=== PATIENT | female | born 1975 | race Caucasian/White ===

== ENCOUNTER → 2018-05-13 | Outpatient (CLI) | payer SELFPAY ==
[~2018-05-13] MED LIST: APRI1 EACH PO; DI; EPIN.3I IM; ESCI5 PO; Flonase 0.05% N16 GM; KARIVA PO; OLAN2.5 PO; ORACONB; Omeprazole20 M1; THIA100 PO
== END | disposition home or self-care (01) ==
LOC: LAB 11:42 → LAB SHORT 11:42
PROVIDERS: Obstetrics & Gynecology
DX: Z01.419 Encounter for gynecological examination (general) (routine) without abnormal findings (principal)
CPT/HCPCS: 87624; G0123

== ENCOUNTER 2020-01-27 07:14 | Day surgery (SDC) | payer OTHER | END 2020-01-27 22:39 | disposition home or self-care (01) | LOC: MOI US 07:14 | DX: C50.911 Malignant neoplasm of unspecified site of right female breast (principal); C77.3 Secondary and unspecified malignant neoplasm of axilla and upper limb lymph nodes; Z17.1 Estrogen receptor negative status [ER-] | CPT/HCPCS: 19083; 38505; 76942; 77065; 88305; 88360 ==

== ENCOUNTER 2020-02-09 07:57 | Day surgery (SDC) | payer OTHER ==
[~2020-02-09] VITALS: Ht 162.6 cm; Wt 56.8 kg
== END 2020-02-09 12:26 | disposition home or self-care (01) ==
LOC: ORSCMMR 07:57 → ORD 08:30 → ORSCMMR 09:45
PROVIDERS: Surgery
PROC: 05HN33Z Insertion of Infusion Device into Left Internal Jugular Vein, Percutaneous Approach (ICD-10-PCS; principal; 2020-02-09 09:45)
PROC: B5141ZA Fluoroscopy of Left Jugular Veins using Low Osmolar Contrast, Guidance (ICD-10-PCS; principal; 2020-02-09 09:45)
DX: C50.911 Malignant neoplasm of unspecified site of right female breast (principal); F17.210 Nicotine dependence, cigarettes, uncomplicated; K21.9 Gastro-esophageal reflux disease without esophagitis; Z79.899 Other long term (current) drug therapy
CPT/HCPCS: 77001; A9270-GY; C1788; J0690; J1100; J1642; J2250; J2405; J2704; J3010; J7120

== ENCOUNTER → 2020-03-20 | Outpatient (CLI) | payer OTHER ==
[2020-03-20 15:13] LABS: BASOPHILS ABSOLUTE AUTO 0.13 K/mm3 (0.00-0.23); BASOPHILS PERCENT AUTO 2 % (0-2); EOSINOPHILS ABSOLUTE AUTO 0.07 K/mm3 (0.00-0.68); EOSINOPHILS PERCENT AUTO 1 % (0-6); Hematocrit 32.5 % (33.0-51.0); Hemoglobin 10.5 g/dL (11.5-16.0); IMMATURE GRAN ABSOLUTE AUTO 0.16 K/mm3 (0.00-0.10); IMMATURE GRAN PERCENT AUTO 2 % (0-1); LYMPHOCYTES ABSOLUTE AUTO 1.83 K/mm3 (0.84-5.20); LYMPHOCYTES PERCENT AUTO 24 % (21-46); MONOCYTES ABSOLUTE AUTO 1.45 K/mm3 (0.16-1.47); MONOCYTES PERCENT AUTO 19 % (4-13); Mean Corpuscular HGB 29.8 pg (26.0-34.0); Mean Corpuscular HGB Conc 32.3 g/dL (31.5-36.5); Mean Corpuscular Volume 92 fL (80-100); Mean Platelet Volume 9.8 fL (9.1-12.4); NEUTROPHILS PERCENT AUTO 53 % (41-73); Platelet Count 356 K/mm3 (150-400); RDW Coefficient Variation 13.6 % (11.7-14.2); RDW Standard Deviation 44.7 fL (35.1-46.3); Red Blood Cell Count 3.52 M/mm3 (3.80-5.20); White Blood Cell Count 7.74 K/mm3 (4.00-11.30)
[2020-03-20 15:29] LABS: Alanine Aminotransfer (ALT/SGP 45 U/L (12-78); Albumin, Blood 3.6 g/dL (3.4-5.0); Albumin/Globulin Ratio 1.2 (0.8-1.8); Alk Phos 89 U/L (50-136); Anion Gap 7 mmol/L (6-16); Aspartate Aminotrans (AST/SGOT 32 U/L (12-37); Bilirubin, Total 0.2 mg/dL (0.1-1.0); Blood Urea Nitrogen 13 mg/dL (8-24); Bun/Creatinine Ratio 16.8 (12.0-20.0); CO2, Blood 25 mmol/L (21-32); Calcium, Blood 8.3 mg/dL (8.5-10.1); Chloride, Blood 110 mmol/L (98-108); Creatinine, Blood 0.77 mg/dL (0.40-1.00); Globulin, Blood 3.1 g/dL (2.2-4.0); Glomerular Filtration Rate >60 (60-); Glucose, Blood 90 mg/dL (70-99); Potassium, Blood 3.9 mmol/L (3.5-5.5); Sodium, Blood 142 mmol/L (136-145); Total Protein, Blood 6.7 g/dL (6.4-8.2)
== END | disposition home or self-care (01) ==
LOC: LAB 14:03 → LAB SHORT 14:03
PROVIDERS: Internal Medicine Hematology & Oncology
DX: C50.919 Malignant neoplasm of unspecified site of unspecified female breast (principal)
CPT/HCPCS: 80053; 85025

== ENCOUNTER 2020-07-27 09:07 | Day surgery (SDC) | payer OTHER ==
[2020-07-31] MEDS ORDERED: ONDA4 PO (08:38)
[2020-07-31] MEDS ORDERED: DEXA6 PO (08:38)
[2020-07-31] MEDS ORDERED: OMEP20ER PO (08:39)
== END 2020-07-27 12:00 | disposition home or self-care (01) ==
LOC: MOI US 09:07
DX: C50.919 Malignant neoplasm of unspecified site of unspecified female breast (principal); C77.3 Secondary and unspecified malignant neoplasm of axilla and upper limb lymph nodes
CPT/HCPCS: 19285

== ENCOUNTER 2020-07-31 08:44 | Day surgery (SDC) | payer OTHER ==
[~2020-07-31 08:44] MED LIST changes: +DEXA6 PO; +OMEP20ER PO; +ONDA4 PO
== END 2020-07-31 22:37 | disposition home or self-care (01) ==
LOC: MOI MAM 08:44
DX: C50.411 Malignant neoplasm of upper-outer quadrant of right female breast (principal)
CPT/HCPCS: 77065

== ENCOUNTER 2020-09-23 15:54 | Emergency (ER) | payer OTHER ==
[~2020-09-23] VITALS: Ht 162.6 cm; Wt 59.0 kg
[2020-09-23 16:41] LABS: BASOPHILS ABSOLUTE AUTO 0.09 K/mm3 (0.00-0.23); BASOPHILS PERCENT AUTO 1 % (0-2); EOSINOPHILS ABSOLUTE AUTO 0.07 K/mm3 (0.00-0.68); EOSINOPHILS PERCENT AUTO 1 % (0-6); Hematocrit 45.9 % (33.0-51.0); Hemoglobin 15.2 g/dL (11.5-16.0); IMMATURE GRAN ABSOLUTE AUTO 0.01 K/mm3 (0.00-0.10); IMMATURE GRAN PERCENT AUTO 0 % (0-1); LYMPHOCYTES ABSOLUTE AUTO 3.86 K/mm3 (0.84-5.20); LYMPHOCYTES PERCENT AUTO 56 % (21-46); MONOCYTES ABSOLUTE AUTO 0.35 K/mm3 (0.16-1.47); MONOCYTES PERCENT AUTO 5 % (4-13); Mean Corpuscular HGB 29.4 pg (26.0-34.0); Mean Corpuscular HGB Conc 33.1 g/dL (31.5-36.5); Mean Corpuscular Volume 89 fL (80-100); Mean Platelet Volume 8.9 fL (9.1-12.4); NEUTROPHILS ABSOLUTE AUTO 2.47 K/mm3 (1.96-9.15); NEUTROPHILS PERCENT AUTO 36 % (41-73); Platelet Count 363 K/mm3 (150-400); RDW Coefficient Variation 12.3 % (11.7-14.2); RDW Standard Deviation 40.7 fL (35.1-46.3); Red Blood Cell Count 5.17 M/mm3 (3.80-5.20); White Blood Cell Count 6.85 K/mm3 (4.00-11.30)
[2020-09-23 18:07] LABS: Alanine Aminotransfer (ALT/SGP 65 U/L (12-78); Albumin, Blood 4.7 g/dL (3.4-5.0); Albumin/Globulin Ratio 1.1 (0.8-1.8); Alk Phos 91 U/L (50-136); Anion Gap 13 mmol/L (6-16); Aspartate Aminotrans (AST/SGOT 74 U/L (12-37); Bilirubin, Total 0.3 mg/dL (0.1-1.0); Blood Urea Nitrogen 15 mg/dL (8-24); Bun/Creatinine Ratio 27.8 (12.0-20.0); CO2, Blood 24 mmol/L (21-32); Calcium, Blood 8.8 mg/dL (8.5-10.1); Chloride, Blood 107 mmol/L (98-108); Creatinine, Blood 0.54 mg/dL (0.40-1.00); Globulin, Blood 4.1 g/dL (2.2-4.0); Glomerular Filtration Rate >60 (60-); Glucose, Blood 95 mg/dL (70-99); Potassium, Blood 3.8 mmol/L (3.5-5.5); Sodium, Blood 144 mmol/L (136-145); Total Protein, Blood 8.8 g/dL (6.4-8.2); Troponin I <0.015 ng/mL (0.000-0.040)
[2020-09-23] MEDS ORDERED: OLAN2.5 PO (18:44)
== END 2020-09-23 18:55 | disposition home or self-care (01) ==
LOC: ER 15:54
PROVIDERS: Physician Assistant
DX: R56.9 Unspecified convulsions (principal); F32.9 Major depressive disorder, single episode, unspecified; C50.919 Malignant neoplasm of unspecified site of unspecified female breast; Z91.030 Bee allergy status; Z88.0 Allergy status to penicillin; Z91.040 Latex allergy status; Z79.899 Other long term (current) drug therapy; Z87.891 Personal history of nicotine dependence
CPT/HCPCS: 36415; 71046; 80053; 84484; 85025; 85379; 93005; 93010; 99284-25

== ENCOUNTER 2022-01-24 09:12 | Inpatient (IN) | payer OTHER ==
[~2022-01-24] VITALS: Ht 162.6 cm; Wt 58.3 kg
[~2022-01-24 09:12] MED LIST changes: -GABA100 PO; -LEVSOD25 PO
[2022-01-24 10:26] LABS: Source, Urine Clean Catch
[2022-01-24 10:27] LABS: BASOPHILS ABSOLUTE AUTO 0.07 K/mm3 (0.00-0.23); BASOPHILS PERCENT AUTO 1 % (0-2); EOSINOPHILS ABSOLUTE AUTO 0.06 K/mm3 (0.00-0.68); EOSINOPHILS PERCENT AUTO 1 % (0-6); IMMATURE GRAN ABSOLUTE AUTO 0.04 K/mm3 (0.00-0.10); IMMATURE GRAN PERCENT AUTO 1 % (0-1); LYMPHOCYTES ABSOLUTE AUTO 0.99 K/mm3 (0.84-5.20); LYMPHOCYTES PERCENT AUTO 12 % (21-46); MONOCYTES ABSOLUTE AUTO 1.47 K/mm3 (0.16-1.47); MONOCYTES PERCENT AUTO 18 % (4-13); Mean Corpuscular HGB Conc 35.1 g/dL (31.5-36.5); Mean Corpuscular Volume 86 fL (80-100); Mean Platelet Volume 8.6 fL (9.1-12.4); NEUTROPHILS ABSOLUTE AUTO 5.45 K/mm3 (1.96-9.15); NEUTROPHILS PERCENT AUTO 67 % (41-73); Platelet Count 500 K/mm3 (150-400); RDW Coefficient Variation 16.9 % (11.7-14.2); Red Blood Cell Count 4.33 M/mm3 (3.80-5.20); White Blood Cell Count 8.08 K/mm3 (4.00-11.30)
[2022-01-24 10:46] LABS: Appearance, Urine Clear (Clear); Bilirubin, Urine Neg (Neg); Blood, Urine 2+ (Neg); Color, Urine Yellow (P-Yellow); Glucose Qualitative, Urine Neg (Neg); Ketones, Urine 1+ (Neg); Leukocyte Esterase, Urine 1+ (Neg); Nitrite, Urine Neg (Neg); Protein, Urine 2+ (Neg); Urobilinogen, Urine NORM (Normal)
[2022-01-24] MEDS ORDERED: GABA100 PO (10:49)
[2022-01-24] MEDS ORDERED: LEVSOD25 PO (10:49)
[2022-01-24 10:50] LABS: Alanine Aminotransfer (ALT/SGP 427 U/L (12-78); Albumin, Blood 4.3 g/dL (3.4-5.0); Albumin/Globulin Ratio 1.2 (0.8-1.8); Alk Phos 259 U/L (50-136); Aspartate Aminotrans (AST/SGOT 146 U/L (12-37); Bilirubin, Total 1.3 mg/dL (0.1-1.0); Blood Urea Nitrogen 17 mg/dL (8-24); CO2, Blood 26 mmol/L (21-32); Chloride, Blood 80 mmol/L (98-108); Creatinine, Blood 0.53 mg/dL (0.40-1.00); Globulin, Blood 3.7 g/dL (2.2-4.0); Glomerular Filtration Rate >60 (60-); Glucose, Blood 127 mg/dL (70-99); Potassium, Blood 4.4 mmol/L (3.5-5.5)
[2022-01-24 10:51] LABS: Anion Gap 9 mmol/L (6-16); Sodium, Blood 115 mmol/L (136-145)
[2022-01-24 10:57] LABS: C-Reactive Protein, High Sens. 6.54 mg/L (0.000-3.000)
[2022-01-24 11:00] LABS: Thyroid Stimulating Hormone 2.63 uIU/mL (0.360-4.800)
[2022-01-24 11:29] LABS: Bacteria Mod /hpf; Mucus Light (0-Heavy); Red Blood Cells, Urine 0-2 /hpf (0-2); Squamous Epithelial Cells Mod /hpf (Few)
--- NOTE | 2022-01-24 13:39 | NUR ---
ADMIT PT ARRIVED TO ICU 2 VIA ER BED. PT IS AWAKE AND ALERT, BUT LETHARGIC AND WITH SLURRED SPEECH. PT STOOD UP TO TRANSFER TO ICU BED. PT UNSTEADY ON FEET. PT ANSWERS QUESTIONS APPROPRIATELY. PT COMPLAINS OF PAIN TO LEGS AND CRAMPING SENSATION. PT MOVES ALL EXTREMITIES WELL. VITAL SIGNS STABLE. IV WITH NS INFUSING AT 100 ML/HR. WILL CONTINUE TO MONITOR.
[2022-01-24 13:57] LABS: U Amphetamine Screen Not Detected; U Barbituate Screen DETECTED; U Benzodiazapine Screen Not Detected; U Buprenorphine Screen Not Detected; U Cannabinoids Screen DETECTED; U Cocaine Screen Not Detected; U Methadone Screen Not Detected; U Methamphetamine Screen Not Detected; U Opiates Screen Not Detected; U Oxycodone Screen Not Detected; U Phencyclidine Screen Not Detected; U Propoxyphene Screen Not Detected
--- NOTE | 2022-01-24 17:07 | NUR ---
SHIFT SUMMARY NO ACUTE CHANGES. PT REMAINS AWAKE, ALERT, AND ORIENTED. PT SPEECH IS IMPROVED, BUT REMAINS SLURRED AT TIMES. PT IS RESTLESS IN BED AND CONTINUES TO COMPLAIN OF LEG CRAMPS. PT WITH UNSTEADY GAIT WHEN STANDING, BUT PT ABLE TO TRANSFER TO BEDSIDE COMMODE TO VOID WITH ASSISTANCE. NS INFUSING AT 100 ML/HR. DR PIRES IN TO SEE PT THIS AFTERNOON. NO CHANGES TO PLAN OF CARE. VITAL SIGNS REMAIN STABLE. WILL CONTINUE TO MONITOR AND REPORT OFF TO ONCOMING RN.
[2022-01-25 03:39] LABS: Hematocrit 37.4 % (33.0-51.0); Hemoglobin 13.1 g/dL (11.5-16.0); Mean Corpuscular HGB 30.1 pg (26.0-34.0); Mean Corpuscular Volume 86 fL (80-100); Mean Platelet Volume 8.4 fL (9.1-12.4); Platelet Count 484 K/mm3 (150-400); RDW Coefficient Variation 17.2 % (11.7-14.2); RDW Standard Deviation 53.1 fL (35.1-46.3); Red Blood Cell Count 4.35 M/mm3 (3.80-5.20); White Blood Cell Count 7.52 K/mm3 (4.00-11.30)
[2022-01-25 03:56] LABS: Alanine Aminotransfer (ALT/SGP 353 U/L (12-78); Albumin, Blood 3.8 g/dL (3.4-5.0); Albumin/Globulin Ratio 1.1 (0.8-1.8); Alk Phos 215 U/L (50-136); Anion Gap 8 mmol/L (6-16); Aspartate Aminotrans (AST/SGOT 119 U/L (12-37); Bilirubin, Total 1.1 mg/dL (0.1-1.0); Blood Urea Nitrogen 9 mg/dL (8-24); Bun/Creatinine Ratio 18.7 (12.0-20.0); CO2, Blood 26 mmol/L (21-32); Calcium, Blood 8.7 mg/dL (8.5-10.1); Chloride, Blood 93 mmol/L (98-108); Creatinine, Blood 0.48 mg/dL (0.40-1.00); Globulin, Blood 3.6 g/dL (2.2-4.0); Glomerular Filtration Rate >60 (60-); Glucose, Blood 96 mg/dL (70-99); Potassium, Blood 3.9 mmol/L (3.5-5.5); Sodium, Blood 127 mmol/L (136-145); Total Protein, Blood 7.4 g/dL (6.4-8.2)
--- NOTE | 2022-01-25 04:57 | NUR ---
SHIFT SUMMARY PATIENT WAS VERY WEAK AND UNSTEADY AT BEGINNING OF SHIFT W/ SEVERELY SLURRED SPEECH THAT HAS IMPROVED T/O SHIFT. ABLE TO TRANSFER FROM BED TO COMMODE AND BACK W/ STAND BY ASSIST. ONE EPISODE OF CONFUSION WHEN SHE WOKE UP FROM SLEEPING FORGETTING SHE WAS IN THE HOSPITAL. STATED "I THOUGHT I WAS KIDNAPPED AND TIED UP" WHEN FOUND STANDING OUT OF BED RIPPING OFF CORDS AND LEADS. EASILY REDIRECTABLE AND CONSOLABLE. AFTER THIS EPISODE, BED ALARM TURNED ON AND NO FURTHER EPISODES DURING SHIFT. PATIENT HAD TOTAL INTAKE OF 500ML PO FREE WATER AND SNACKED ON HIGH SALT SNACKS FROM HOME SUCH POPCORN AND LAYS CHIPS. TOTAL URINE OUTPUT 1450ML. 250ML OF 3% SALINE INFUSED OVER 5 HOURS THAN TRANSITIONED BACK TO NS @ 75ML. SODIUM LEVEL IMPROVED TO 127. NO OTHER CHANGES DURING SHIFT.
--- NOTE | 2022-01-25 08:50 | NUR ---
ASSISTED PT WITH ZOOM MEETING WITH DR. PIRES. NS IVF STOPPED. PT INSTRUCTED TO DRINK 1-2L OF WATER PER DAY. SET PT UP WITH MEASURED WATER CUP AND EDUCATED ON HOW MUCH TO DRINK PER DAY. NEXT SET OF LABS WILL BE AT 1000.
[2022-01-25 11:02] LABS: Anion Gap 8 mmol/L (6-16); Blood Urea Nitrogen 9 mg/dL (8-24); Bun/Creatinine Ratio 24.9 (12.0-20.0); CO2, Blood 25 mmol/L (21-32); Calcium, Blood 8.3 mg/dL (8.5-10.1); Chloride, Blood 92 mmol/L (98-108); Creatinine, Blood 0.36 mg/dL (0.40-1.00); Glomerular Filtration Rate >60 (60-); Glucose, Blood 100 mg/dL (70-99); Potassium, Blood 3.7 mmol/L (3.5-5.5); Sodium, Blood 125 mmol/L (136-145)
--- NOTE | 2022-01-25 17:54 | NUR ---
SODIUM LEVEL CALLED DR. PIRES 3X WITHOUT ANSWER ABOUT SODIUM LEVEL. CALLED DR. BELL WHO ORDERED NS AT 125ML/HR.
--- NOTE | 2022-01-25 18:18 | NUR ---
SUMMARY PT RESTING IN BED. HAS LEG CRAMPS AND A SHI TODAY. A/O X4 BUT WILL AWAKEN WITH NIGHTMARES AT TIMES AND DISORIENTED VERY BRIEFLY. STILL UNSTEADY GAIT. SODIUM WAS UP TO 127 THIS AM BUT NOW DOWN TO 120 AGAIN. NS AT 125ML/HR RESTARTED. PT IS ON FLUID RESTRICTION. NO OTHER CHANGES THIS SHIFT.
[2022-01-26 05:05] LABS: Anion Gap 9 mmol/L (6-16); Blood Urea Nitrogen 6 mg/dL (8-24); CO2, Blood 26 mmol/L (21-32); Chloride, Blood 87 mmol/L (98-108); Creatinine, Blood 0.33 mg/dL (0.40-1.00); Glomerular Filtration Rate >60 (60-); Glucose, Blood 100 mg/dL (70-99); Potassium, Blood 3.5 mmol/L (3.5-5.5); Sodium, Blood 122 mmol/L (136-145)
--- NOTE | 2022-01-26 06:30 | NUR ---
Patient alert and oriented through the shift, but very impusive, requring frequent redirection. A few episodes of confusion, but patient quickly and easily reoriented. She attempted to get out of bed constantly through the shift, up to commode several times. Voiding clear urine. Attempting to have a BM, states she has abdominal discomfort. Miralax ordered and given. ABD nondistened, normal tones in all quadrants. Figiting with and pulling at lines and cords. Pt asked for her e-cig that is in her belonings several times through the shift, educated opn why it is not allowed. Sodium level 122 on both draws. Unable to reach Dr. Stone, Dr Kam notified. NS increased to 150cc/hr. Pt remains on fluid restriction.
--- NOTE | 2022-01-26 10:16 | NUR ---
ZOOM VISIT WITH DR. PIRES AND PT. DR. PIRES RECOMMENDING PT DRINKS GATORADE INSTEAD OF WATER, GATORADE PROVIDED. PT IS STILL ON FLUID RESTRICTION AND VERBALIZES UNDERSTANDING. PT HAS BEEN A/O X4 THIS AM. AGREED TO USE CALL LIGHT WHEN OOB AND HAS BEEN COMPLIANT WITH THAT. MORE STEADY ON FEET TODAY COMPARED TO YESTERDAY. STILL HAS LEG CRAMPS BUT NO SHI TODAY. DENIES NAUSEA BUT DOES C/O CONSTIPATION. MIRALAX WAS GIVEN LAST NIGHT. SPOKE WITH DR. BELL WHO WILL ORDER SOME OTHER MEDS. PT WAS DOWNGRADED TO MEDICAL STATUS. TRANSFERED TO ROOM 354 VIA W/C. REPORT GIVEN TO RN. NO SIGN OF DISTRESS SHE LEAVES THE UNIT. BED ALARM ARMED ON MEDICAL FLOOR BED BEFORE LEAVING THE PT.
--- NOTE | 2022-01-26 12:23 | NUR ---
PATIENT A AND O 4X. PATIENT FORGETFUL AT TIMES. PATIENTS COCCYX WOUND CONTINUES TO HEAL. DRESSING CHANGED WITH SLIGHT DRAINAGE. PATIENT HAS NO COMPLAINTS. HEAL WOUND IS SLOWLY PROGRESSING BANDAID CHANGED TODAY WITH SCANT DRAINAGE.
--- NOTE | 2022-01-26 12:29 | NUR ---
PATIENT A AND O 4X PATIENT WAS NOT CONFUSED TODAY. PATIENT WAS DROWSY AND STATES LEG PAIN/CRAMPS REMAIN UNCHANGED. PATIENT HAS NO FURTHER COMPLAINTS THUS FAR.
--- NOTE | 2022-01-26 14:07 | NUR ---
DR. Maida JOLLEY NOTIFIED THAT PATIENT HAS HEMATURIA SINCE ADMIT. THE BLOOD IS DISTINGUISHABLE FROM THE URINE WITH NO BLOOD CLOTS. PATIENT STATES THIS HAS ONLY HAPPEND WITH THIS HOSPITAL STAY. PROVIDER ORDERED TO CONTINUE TO MONITOR URINARY OUTPUT FOR ACUTE CHANGES.
--- NOTE | 2022-01-26 15:58 | NUR ---
PATIENT REPORTS SEVERE PAIN AND MUSCEL SPASMS OF LEGS. PATIENT HAS RECIEVED ALL PAIN MEDICATIONS AND MUSCEL RELAXANTS PRESCRIBED. ANYTHING ELSE WE CAN ORDER FOR PAIN? PROVIDER STATED SHE WILL REVIEW CHART AND PLACE ORDERS FOR PAIN.
--- NOTE | 2022-01-26 16:55 | NUR ---
DR. Maida JOLLEY NOTIFIED OF HIGH BP. CURRENT SODIUM LEVEL OF 121 AND PATIENT REMAINING IN PAIN. PROVIDER STATED NO NEW ORDERS AT THIS TIME. NOTIFY PROVIDER FOR SYSTOLIC GREATER THAN 170 OR DIASTOLIC GREATER THAN 110.
--- NOTE | 2022-01-26 19:33 | NUR ---
Patient alert and oriented x's 4, sitting up in bed watching t.v. states just waiting to go home. Denies pain or SOB. Dressing intact to LLE, 1+ edema, warm to touch. Safety maintained, call garcia in reach.
--- NOTE | 2022-01-26 22:32 | NUR ---
Notified Dr. Stone of patients sodium level 125. No new orders, will continue to monitor at this time. Emeka encouraged at bedside.
[2022-01-27 04:40] LABS: BASOPHILS ABSOLUTE AUTO 0.06 K/mm3 (0.00-0.23); BASOPHILS PERCENT AUTO 1 % (0-2); EOSINOPHILS ABSOLUTE AUTO 0.05 K/mm3 (0.00-0.68); EOSINOPHILS PERCENT AUTO 1 % (0-6); Hematocrit 33.6 % (33.0-51.0); Hemoglobin 11.7 g/dL (11.5-16.0); IMMATURE GRAN ABSOLUTE AUTO 0.02 K/mm3 (0.00-0.10); IMMATURE GRAN PERCENT AUTO 0 % (0-1); LYMPHOCYTES ABSOLUTE AUTO 0.97 K/mm3 (0.84-5.20); LYMPHOCYTES PERCENT AUTO 16 % (21-46); MONOCYTES ABSOLUTE AUTO 1.44 K/mm3 (0.16-1.47); MONOCYTES PERCENT AUTO 24 % (4-13); Mean Corpuscular HGB 30.1 pg (26.0-34.0); Mean Corpuscular HGB Conc 34.8 g/dL (31.5-36.5); Mean Corpuscular Volume 86 fL (80-100); Mean Platelet Volume 8.2 fL (9.1-12.4); NEUTROPHILS ABSOLUTE AUTO 3.51 K/mm3 (1.96-9.15); NEUTROPHILS PERCENT AUTO 58 % (41-73); Platelet Count 512 K/mm3 (150-400); RDW Standard Deviation 52.4 fL (35.1-46.3); Red Blood Cell Count 3.89 M/mm3 (3.80-5.20); White Blood Cell Count 6.05 K/mm3 (4.00-11.30)
[2022-01-27 05:25] LABS: Alanine Aminotransfer (ALT/SGP 191 U/L (12-78); Albumin, Blood 3.2 g/dL (3.4-5.0); Albumin/Globulin Ratio 0.9 (0.8-1.8); Alk Phos 181 U/L (50-136); Anion Gap 10 mmol/L (6-16); Aspartate Aminotrans (AST/SGOT 49 U/L (12-37); Bilirubin, Total 0.4 mg/dL (0.1-1.0); Blood Urea Nitrogen 6 mg/dL (8-24); Bun/Creatinine Ratio 15.7 (12.0-20.0); CO2, Blood 26 mmol/L (21-32); Calcium, Blood 8.6 mg/dL (8.5-10.1); Chloride, Blood 90 mmol/L (98-108); Creatinine, Blood 0.38 mg/dL (0.40-1.00); Globulin, Blood 3.6 g/dL (2.2-4.0); Glomerular Filtration Rate >60 (60-); Glucose, Blood 115 mg/dL (70-99); Potassium, Blood 3.1 mmol/L (3.5-5.5); Sodium, Blood 126 mmol/L (136-145); Total Protein, Blood 6.8 g/dL (6.4-8.2)
--- NOTE | 2022-01-27 05:59 | NUR ---
Alert and oriented x's 4. Medicated with flexeril 5mg and Ultram 50mg intermittently due to BLE pain, states she gets sharp shooting pains to her legs. Denies SOB or chest pain, resp even and unlabored. Voiding, 1500ml. Consumed 1200ml of Gatorade at bedside. Slept well, safety maintained, call garcia in reach.
[2022-01-27 10:07] LABS: Source, Urine Voided
[2022-01-27 10:10] LABS: Bilirubin, Urine Neg (Neg); Blood, Urine 5+ (Neg); Glucose Qualitative, Urine 1+ (Neg); Ketones, Urine Neg (Neg); Leukocyte Esterase, Urine 2+ (Neg); Nitrite, Urine Neg (Neg); Protein, Urine 1+ (Neg); Specific Gravity, Urine 1.015 (1.003-1.022); Urobilinogen, Urine NORM (Normal); pH, Urine 6.5 (5.0-8.0)
[2022-01-27 10:35] LABS: Appearance, Urine Hazy (Clear); Color, Urine Yellow (P-Yellow)
[2022-01-27 10:36] LABS: Bacteria Mod /hpf; Squamous Epithelial Cells Few /hpf (Few)
[2022-01-27 10:38] LABS: Mucus Light (0-Heavy)
--- NOTE | 2022-01-27 10:48 | NUR ---
DR. PIRES ROUNDED VIA TELEHEALTH. PT HAD HEMATURIA YESTERDAY BUT NOT THROUGHOUT THE BOBBIN STRIPPER RECEIVED FROM REPORT. MD ORDERED URINALYSIS. URINE OBTAINED VIA VOID HAT BROOKE, WITH SOME SEDIMENT, NO BLOOD VISIBLY SEEN. MD AWARE OF RESULTS.
--- NOTE | 2022-01-27 15:34 | NUR ---
GYNECOLOGICAL ASSISTANT REPORTED HIGH BP TO RN. RN SPOKE WITH PATIENT AND COMPLETED AN ASSESSMENT. PATIENT COMPLAINS OF 8/10 PAIN AND STATED THAT THE TRAMODOL HAS NOT WORKED TO RELIEVE PAIN. FLEXERIL GIVEN TO PT WELL WITH NO RELIEF. RN CALLED MD WHO IS WORKING ON PHARACOLOGICAL RELIEF MEASURES. HEAT THERAPY USED ON PT TO HELP RELIEVE SYMPTOMS OF PAIN, LIGHTS TURNED OFF. WILL CONTINUE TO MONITOR.
[2022-01-27 16:17] LABS: Albumin, Blood 3.5 g/dL (3.4-5.0); Anion Gap 7 mmol/L (6-16); Blood Urea Nitrogen 5 mg/dL (8-24); Bun/Creatinine Ratio 13.8 (12.0-20.0); CO2, Blood 26 mmol/L (21-32); Calcium, Blood 8.7 mg/dL (8.5-10.1); Chloride, Blood 89 mmol/L (98-108); Creatinine, Blood 0.36 mg/dL (0.40-1.00); Glomerular Filtration Rate >60 (60-); Glucose, Blood 122 mg/dL (70-99); Phosphorus, Blood 2.3 mg/dL (2.5-4.9); Potassium, Blood 3.9 mmol/L (3.5-5.5); Sodium, Blood 122 mmol/L (136-145)
--- NOTE | 2022-01-27 18:58 | NUR ---
PT ONLY CHIEF COMPLAINT IS PAIN. TRAMADOL PRN Q6 CHANGED TO Q4 BY MD. PATIENT CONTINUES TO HAVE 8-9/10 PAIN. MD NOTIFIED OF CONTINUED PAIN AND ELEVATED BP AND HR DUE TO SEVERE PAIN. MD ORDERED NORCO AND D/C'D TRAMADOL BECAUSE OF PT'S COMPLAINT THAT IT HAD NOT HELPED. DAY SHIFT RN UNABLE TO GIVE PRN NORCO. IV D/C'D ON RIGHT ARM AND PT ABLE TO AMBULATE TO AND FROM BATHROOM INDEPENDENTLY. WILL REPORT TO RN UPON ARRIVAL.
--- NOTE | 2022-01-28 04:13 | NUR ---
BP 170/113, ASYMPTOMATIC, NOTIFIED, RECEIVED ORDER FOR PRN HYDRALAZINE SYS>160.
[2022-01-28 04:55] LABS: BASOPHILS ABSOLUTE AUTO 0.04 K/mm3 (0.00-0.23); BASOPHILS PERCENT AUTO 0 % (0-2); EOSINOPHILS ABSOLUTE AUTO 0.05 K/mm3 (0.00-0.68); EOSINOPHILS PERCENT AUTO 1 % (0-6); Hematocrit 36.5 % (33.0-51.0); IMMATURE GRAN ABSOLUTE AUTO 0.03 K/mm3 (0.00-0.10); IMMATURE GRAN PERCENT AUTO 0 % (0-1); LYMPHOCYTES ABSOLUTE AUTO 1.03 K/mm3 (0.84-5.20); LYMPHOCYTES PERCENT AUTO 11 % (21-46); MONOCYTES ABSOLUTE AUTO 1.65 K/mm3 (0.16-1.47); MONOCYTES PERCENT AUTO 18 % (4-13); Mean Corpuscular HGB 29.6 pg (26.0-34.0); Mean Corpuscular HGB Conc 35.6 g/dL (31.5-36.5); Mean Corpuscular Volume 83 fL (80-100); Mean Platelet Volume 8.5 fL (9.1-12.4); NEUTROPHILS ABSOLUTE AUTO 6.47 K/mm3 (1.96-9.15); NEUTROPHILS PERCENT AUTO 70 % (41-73); Platelet Count 626 K/mm3 (150-400); RDW Coefficient Variation 16.4 % (11.7-14.2); RDW Standard Deviation 49.4 fL (35.1-46.3); Red Blood Cell Count 4.39 M/mm3 (3.80-5.20); White Blood Cell Count 9.27 K/mm3 (4.00-11.30)
[2022-01-28 05:31] LABS: Alanine Aminotransfer (ALT/SGP 172 U/L (12-78); Albumin, Blood 3.5 g/dL (3.4-5.0); Albumin/Globulin Ratio 0.9 (0.8-1.8); Alk Phos 186 U/L (50-136); Anion Gap 13 mmol/L (6-16); Aspartate Aminotrans (AST/SGOT 46 U/L (12-37); Bilirubin, Total 0.5 mg/dL (0.1-1.0); Blood Urea Nitrogen 6 mg/dL (8-24); Bun/Creatinine Ratio 17.8 (12.0-20.0); CO2, Blood 23 mmol/L (21-32); Calcium, Blood 8.9 mg/dL (8.5-10.1); Chloride, Blood 84 mmol/L (98-108); Creatinine, Blood 0.34 mg/dL (0.40-1.00); Globulin, Blood 3.7 g/dL (2.2-4.0); Glomerular Filtration Rate >60 (60-); Glucose, Blood 132 mg/dL (70-99); Potassium, Blood 3.4 mmol/L (3.5-5.5); Sodium, Blood 120 mmol/L (136-145); Total Protein, Blood 7.2 g/dL (6.4-8.2)
--- NOTE | 2022-01-28 05:56 | NUR ---
Alert and oriented x's 4. Up ad viv through night, gait steady. voided 1900ml, In take 800ml. Medicated with percocet q4hrs for pain management to BLE's, effective relief. Resting in bed at this time. Safety maintained, call garcia in reach.
--- NOTE | 2022-01-28 13:15 | NUR ---
PATIENT HAD EPISODES OF 130 BPM ON TELE HEART RATE MONITORING WHEN STRAINING TO USE THE RESTROOM. TELEMETRY CALLED RN ASSIGNED TO PT TO ALERT. PATIENT GIVEN MIRALAX WITH GATORADE MIX. PATIENT FROM [id number] HAS HAD 4 BOWEL MOVEMENTS. PT STATES THAT THEY FEEL RELIEVED BUT DO HAVE ONSET OF THE ACUTE PAIN EXPERIENCED WHILE IN THE HOSPITAL. PRN NORCO GIVEN FOR PAIN.
[2022-01-28 16:30] LABS: Albumin, Blood 3.6 g/dL (3.4-5.0); Anion Gap 11 mmol/L (6-16); Blood Urea Nitrogen 16 mg/dL (8-24); Bun/Creatinine Ratio 45.1 (12.0-20.0); CO2, Blood 24 mmol/L (21-32); Calcium, Blood 9.5 mg/dL (8.5-10.1); Chloride, Blood 87 mmol/L (98-108); Creatinine, Blood 0.36 mg/dL (0.40-1.00); Glomerular Filtration Rate >60 (60-); Glucose, Blood 139 mg/dL (70-99); Phosphorus, Blood 2.8 mg/dL (2.5-4.9); Potassium, Blood 3.8 mmol/L (3.5-5.5); Sodium, Blood 122 mmol/L (136-145)
--- NOTE | 2022-01-28 17:31 | NUR ---
UPON ARRIVAL PATIENT ASSESSED AND NO COMPLAINTS OF PAIN NOTED. PATIENTS SODIUM AND POTASSIUM LEVELS CONTINUE TO BE PRIORITY. MOST RECENT LABS SHOW SODIUM AT 122 AND POTASSIUM AT 3.8. PT STILL ON STRICT I/O WITH A 1500 MLS FLUID RESTRICTION. PATIENT HAS A GATORADE IN ROOM THAT SHE HAS TO SAVE UNTIL 6AM TO DRINK ADDITIONAL FLUIDS. URINE LABS ORDERED BUT PT HAS NOT URINATED YET. SAMPLE WILL BE SENT SOON AVAILABLE. PATIENT HAS HAD 3 EPISODES OF 130+HR REPORTED ON TELEMETRY USUALLY CONINSIDING WITH AMBULATING TO THE BATHROOM OR STRAINING IN THE BATHROOM. PT NO LONGER CONSTIPATED AND HAS RECEIVED DOCUSATE AND MIRILAX. STATED NO FREE WATER SHOULD BE GIVEN TO PATIENT. BP HAS BEEN RUNNING HIGH PRN HYDRALAZINE GIVEN FOR SBP ABOVE 170. BP RECHECK SHOWED IMPROVEMENT. BRINA REPORT TO ONCOMING RN UPON ARRIVAL.
--- NOTE | 2022-01-28 22:38 | NUR ---
Alert and oriented x's 4. Percocet given due to c/o BLE pain, effective relief. Resting in bed watching t.v. FR:1500ml, maintained. Safety maintained, call garcia in reach.
[2022-01-29 04:39] LABS: BASOPHILS ABSOLUTE AUTO 0.04 K/mm3 (0.00-0.23); BASOPHILS PERCENT AUTO 0 % (0-2); EOSINOPHILS ABSOLUTE AUTO 0.04 K/mm3 (0.00-0.68); EOSINOPHILS PERCENT AUTO 0 % (0-6); Hematocrit 35.1 % (33.0-51.0); Hemoglobin 12.1 g/dL (11.5-16.0); IMMATURE GRAN ABSOLUTE AUTO 0.05 K/mm3 (0.00-0.10); IMMATURE GRAN PERCENT AUTO 0 % (0-1); LYMPHOCYTES ABSOLUTE AUTO 1.19 K/mm3 (0.84-5.20); LYMPHOCYTES PERCENT AUTO 10 % (21-46); MONOCYTES ABSOLUTE AUTO 1.82 K/mm3 (0.16-1.47); MONOCYTES PERCENT AUTO 15 % (4-13); Mean Corpuscular HGB 29.4 pg (26.0-34.0); Mean Corpuscular HGB Conc 34.5 g/dL (31.5-36.5); Mean Corpuscular Volume 85 fL (80-100); Mean Platelet Volume 8.5 fL (9.1-12.4); NEUTROPHILS ABSOLUTE AUTO 8.76 K/mm3 (1.96-9.15); NEUTROPHILS PERCENT AUTO 74 % (41-73); Platelet Count 751 K/mm3 (150-400); RDW Coefficient Variation 17.4 % (11.7-14.2); RDW Standard Deviation 53.9 fL (35.1-46.3); Red Blood Cell Count 4.11 M/mm3 (3.80-5.20)
[2022-01-29 05:11] LABS: Alanine Aminotransfer (ALT/SGP 140 U/L (12-78); Albumin, Blood 3.5 g/dL (3.4-5.0); Albumin/Globulin Ratio 0.9 (0.8-1.8); Alk Phos 159 U/L (50-136); Anion Gap 11 mmol/L (6-16); Aspartate Aminotrans (AST/SGOT 40 U/L (12-37); Bilirubin, Total 0.5 mg/dL (0.1-1.0); Blood Urea Nitrogen 14 mg/dL (8-24); Bun/Creatinine Ratio 44.9 (12.0-20.0); CO2, Blood 23 mmol/L (21-32); Calcium, Blood 9.6 mg/dL (8.5-10.1); Chloride, Blood 89 mmol/L (98-108); Creatinine, Blood 0.31 mg/dL (0.40-1.00); Globulin, Blood 3.8 g/dL (2.2-4.0); Glomerular Filtration Rate >60 (60-); Glucose, Blood 135 mg/dL (70-99); Potassium, Blood 3.6 mmol/L (3.5-5.5); Sodium, Blood 123 mmol/L (136-145); Total Protein, Blood 7.3 g/dL (6.4-8.2)
--- NOTE | 2022-01-29 05:34 | NUR ---
Alert and oriented x's 4. Medicated with Sullivan due to BLE pain, effective relief. Intake 600ml, voided 550ml. FR 1500/day. Resting peacefully in bed, safety maintained, call garcia in reach.
[2022-01-29 08:11] LABS: COMPLEMENT C3, SERUM 150 mg/dL (82-167); COMPLEMENT C4, SERUM 39 mg/dL (12-38); IMMUNOGLOBULIN A, QN, SERUM 239 mg/dL (87-352)
[2022-01-29 18:17] LABS: Albumin, Blood 3.7 g/dL (3.4-5.0); Anion Gap 7 mmol/L (6-16); Blood Urea Nitrogen 25 mg/dL (8-24); Bun/Creatinine Ratio 70.8 (12.0-20.0); CO2, Blood 25 mmol/L (21-32); Calcium, Blood 9.7 mg/dL (8.5-10.1); Chloride, Blood 91 mmol/L (98-108); Creatinine, Blood 0.35 mg/dL (0.40-1.00); Glomerular Filtration Rate >60 (60-); Glucose, Blood 132 mg/dL (70-99); Phosphorus, Blood 3.1 mg/dL (2.5-4.9); Potassium, Blood 3.6 mmol/L (3.5-5.5); Sodium, Blood 123 mmol/L (136-145)
--- NOTE | 2022-01-29 19:27 | NUR ---
PT ALERT AND ORIENTED X3-4. PT STATED SHE HIT LEG ON TOILET. AND THERE WAS A BRUISE. MD NOTIFIED. PAIN CONTROL AND FLUID RESTICTIONS REMAIN PT'S GOALS. LABS HAVE CONTINUED TO IMPROVE SLOWLY. REPORT GIVEN TO PT REMAINS STABLE.
[2022-01-30 05:13] LABS: BASOPHILS ABSOLUTE AUTO 0.03 K/mm3 (0.00-0.23); BASOPHILS PERCENT AUTO 0 % (0-2); EOSINOPHILS ABSOLUTE AUTO 0.07 K/mm3 (0.00-0.68); EOSINOPHILS PERCENT AUTO 1 % (0-6); Hematocrit 34.3 % (33.0-51.0); IMMATURE GRAN ABSOLUTE AUTO 0.04 K/mm3 (0.00-0.10); IMMATURE GRAN PERCENT AUTO 0 % (0-1); LYMPHOCYTES ABSOLUTE AUTO 1.13 K/mm3 (0.84-5.20); LYMPHOCYTES PERCENT AUTO 11 % (21-46); MONOCYTES PERCENT AUTO 16 % (4-13); Mean Corpuscular HGB 29.9 pg (26.0-34.0); Mean Corpuscular Volume 85 fL (80-100); Mean Platelet Volume 8.4 fL (9.1-12.4); NEUTROPHILS ABSOLUTE AUTO 7.72 K/mm3 (1.96-9.15); NEUTROPHILS PERCENT AUTO 72 % (41-73); Platelet Count 719 K/mm3 (150-400); RDW Coefficient Variation 17.6 % (11.7-14.2); RDW Standard Deviation 54.9 fL (35.1-46.3); Red Blood Cell Count 4.02 M/mm3 (3.80-5.20); White Blood Cell Count 10.69 K/mm3 (4.00-11.30)
[2022-01-30 05:40] LABS: Alanine Aminotransfer (ALT/SGP 138 U/L (12-78); Albumin, Blood 3.4 g/dL (3.4-5.0); Albumin/Globulin Ratio 0.9 (0.8-1.8); Alk Phos 149 U/L (50-136); Anion Gap 10 mmol/L (6-16); Aspartate Aminotrans (AST/SGOT 61 U/L (12-37); Bilirubin, Total 0.5 mg/dL (0.1-1.0); Blood Urea Nitrogen 16 mg/dL (8-24); Bun/Creatinine Ratio 39.5 (12.0-20.0); CO2, Blood 25 mmol/L (21-32); Calcium, Blood 9.2 mg/dL (8.5-10.1); Chloride, Blood 91 mmol/L (98-108); Creatinine, Blood 0.41 mg/dL (0.40-1.00); Globulin, Blood 3.7 g/dL (2.2-4.0); Glomerular Filtration Rate >60 (60-); Glucose, Blood 114 mg/dL (70-99); Potassium, Blood 3.1 mmol/L (3.5-5.5); Sodium, Blood 126 mmol/L (136-145); Total Protein, Blood 7.1 g/dL (6.4-8.2)
--- NOTE | 2022-01-30 06:26 | NUR ---
Alert and oriented x's 4. Medicated with norco and flexeril due to BLE pain, effective. Intake 800ml, OP 500. Otherwise no changes. Resting peacefully in bed at this time. Safety maintained.
--- NOTE | 2022-01-30 17:39 | NUR ---
ALERT AND ORIENTED X3-4. PATIENT DOES HAVE SOME CONFUSION BUT HAS IMPROVED IN THE LAST 3 DAYS. SODIUM AND POTASSIUM STILL BEING MONITORED. PATIENT ON FREE WATER RESTRICTION AND A FLUID RESTICTION OF 1500MLS. CALL LIGHT WITHIN REACH WILL CONTINUE TO MONITOR AND REPORT TO ONCOMING RN UPON ARRIVAL.
[2022-01-30 18:26] LABS: Anion Gap 6 mmol/L (6-16); Blood Urea Nitrogen 23 mg/dL (8-24); Bun/Creatinine Ratio 52.3 (12.0-20.0); CO2, Blood 26 mmol/L (21-32); Calcium, Blood 9.1 mg/dL (8.5-10.1); Chloride, Blood 96 mmol/L (98-108); Creatinine, Blood 0.44 mg/dL (0.40-1.00); Glomerular Filtration Rate >60 (60-); Glucose, Blood 121 mg/dL (70-99); Potassium, Blood 3.4 mmol/L (3.5-5.5); Sodium, Blood 128 mmol/L (136-145)
[2022-01-31 05:00] LABS: BASOPHILS ABSOLUTE AUTO 0.07 K/mm3 (0.00-0.23); BASOPHILS PERCENT AUTO 1 % (0-2); EOSINOPHILS ABSOLUTE AUTO 0.15 K/mm3 (0.00-0.68); EOSINOPHILS PERCENT AUTO 1 % (0-6); Hematocrit 36.1 % (33.0-51.0); Hemoglobin 12.2 g/dL (11.5-16.0); IMMATURE GRAN ABSOLUTE AUTO 0.04 K/mm3 (0.00-0.10); IMMATURE GRAN PERCENT AUTO 0 % (0-1); LYMPHOCYTES ABSOLUTE AUTO 1.11 K/mm3 (0.84-5.20); LYMPHOCYTES PERCENT AUTO 11 % (21-46); MONOCYTES ABSOLUTE AUTO 1.74 K/mm3 (0.16-1.47); MONOCYTES PERCENT AUTO 17 % (4-13); Mean Corpuscular HGB 29.6 pg (26.0-34.0); Mean Corpuscular HGB Conc 33.8 g/dL (31.5-36.5); Mean Corpuscular Volume 88 fL (80-100); Mean Platelet Volume 8.2 fL (9.1-12.4); NEUTROPHILS ABSOLUTE AUTO 7.27 K/mm3 (1.96-9.15); NEUTROPHILS PERCENT AUTO 70 % (41-73); Platelet Count 670 K/mm3 (150-400); RDW Coefficient Variation 17.5 % (11.7-14.2); RDW Standard Deviation 56.1 fL (35.1-46.3); Red Blood Cell Count 4.12 M/mm3 (3.80-5.20); White Blood Cell Count 10.38 K/mm3 (4.00-11.30)
[2022-01-31 05:22] LABS: Alanine Aminotransfer (ALT/SGP 123 U/L (12-78); Albumin, Blood 3.5 g/dL (3.4-5.0); Albumin/Globulin Ratio 0.9 (0.8-1.8); Alk Phos 145 U/L (50-136); Anion Gap 10 mmol/L (6-16); Aspartate Aminotrans (AST/SGOT 44 U/L (12-37); Bilirubin, Total 0.4 mg/dL (0.1-1.0); Blood Urea Nitrogen 14 mg/dL (8-24); Bun/Creatinine Ratio 36.1 (12.0-20.0); CO2, Blood 26 mmol/L (21-32); Calcium, Blood 9.5 mg/dL (8.5-10.1); Chloride, Blood 92 mmol/L (98-108); Creatinine, Blood 0.39 mg/dL (0.40-1.00); Globulin, Blood 4.1 g/dL (2.2-4.0); Glomerular Filtration Rate >60 (60-); Glucose, Blood 144 mg/dL (70-99); Potassium, Blood 3.1 mmol/L (3.5-5.5); Sodium, Blood 128 mmol/L (136-145); Total Protein, Blood 7.6 g/dL (6.4-8.2)
--- NOTE | 2022-01-31 05:42 | NUR ---
PM SHIFT SUMMARY PATIENT CONSUMED 2 GATORADES OVER 24 HOUR SHIFT, WHICH EQUATES TO 1182ML OF HER 1500ML RESTRICTION. HER SODIUM THIS MORNING WAS A 128, BUT POTASSIUM WAS AT A 3.1 . HER SBP DID GO ABOVE 170 ONCE DURING SHIFT AND SHE WAS GIVEN PRN LABETALOL PER MAR ORDERS. SHE COMPLAINED OF LEG CRAMPS AND PAIN EVERY 3-3.5 HOURS. SHE KNOWS HER NORCO IS Q4H, TIME DUE IS WRITTEN ON HER BOARD. SHE ALSO REQUESTES FLEXERIL OFTEN. I EXPLAINED IT IS GIVEN 3 TIMES A DAY, SO THIS IT CAN BE GIVEN EVERY 8 HOURS NEEDED. SHE HAD NO OTHER COMPLAINTS DURING THE SHIFT. PER REPORT, PLAN IS TO DC HER ONCE HER SODIUM GETS TO 130.
--- NOTE | 2022-01-31 16:03 | NUR ---
SHIFT SUMMARY PATIENT IS ALERT AND ORIENTED X4. PATIENT HAS HAD LOWER LEG PAIN MOST OF SHIFT, MEDICATED PER EMAR PRN. PATIENT IS PLEASENT AND COOPERATIVE WITH CARE. PATIENT HAS HAD NO ACUTE EVENTS THIS SHIFT. VITAL SIGNS REVIEWED. FLUID RESTRICTION MAINTAINED. PATIENT HAS HAD NO COMPLAINTS OF NAUSEA, SOB OR VOMITTING THIS SHIFT. BED IN LOCKED AND LOWEST POSITION. CALL LIGHT IN PLACE. WILL MONITOR UNTIL SHIFT CHANGE.
--- NOTE | 2022-02-01 05:32 | NUR ---
PM SHIFT SUMMARY FOR THE SECOND NIGHT IN A ROW, PATIENT WAS REQUESTING HER PAIN MEDICATIONS RIGHT BEFORE THE 4 HOUR KEVON. SHE SEEMED MORE SHAKY THIS EVENING COMPARED TO THE PREVIOUS, ESPECIALLY IN BILAT HANDS. SHE HAD NO OTHER COMPLAINTS DURING THE SHIFT. SHE HAD 890ML OF FLUID INTAKE (ALL GATORADE) DURING MY SHIFT. WE ARE STILL TRACKING HER LABS AT THIS TIME.
[2022-02-01 09:11] LABS: Albumin, Blood 3.7 g/dL (3.4-5.0); Anion Gap 8 mmol/L (6-16); Blood Urea Nitrogen 13 mg/dL (8-24); Bun/Creatinine Ratio 45.6 (12.0-20.0); CO2, Blood 25 mmol/L (21-32); Calcium, Blood 9.6 mg/dL (8.5-10.1); Chloride, Blood 94 mmol/L (98-108); Creatinine, Blood 0.29 mg/dL (0.40-1.00); Glomerular Filtration Rate >60 (60-); Glucose, Blood 124 mg/dL (70-99); Magnesium, Blood 1.9 mg/dL (1.6-2.4); Phosphorus, Blood 4.1 mg/dL (2.5-4.9); Potassium, Blood 3.4 mmol/L (3.5-5.5); Sodium, Blood 127 mmol/L (136-145)
--- NOTE | 2022-02-01 15:51 | NUR ---
SHIFT SUMMARY PATIENT IS ALERT AND ORIENTED X4. PATIENT IS PLEASENT AND COOPERATIVE WITH CARE. PATIENT HAS HAD NO ACUTE EVENTS THIS SHIFT. VITAL SIGNS ARE REVIEWED. PATIENTS SODIUM AND POTASSIUM REMAIN LOW AND MEDICATED PER EMAR. PATIENT HAS REQUIRED PAIN MEDICATION Q4, MEDICATED PER EMAR. PATIENT HAS REQUESTED STOOL SOFTNER THIS SHIFT FOR HELP WITH BM. BED IN LOCKED AND LOWEST POSITION. CALL LIGHT IN PLACE. WILL MONITOR UNTIL SHIFT CHANGE.
--- NOTE | 2022-02-02 05:06 | NUR ---
PM SHIFT SUMMARY PATIENT WAS CALLING FOR PAIN MEDICATIONS RIGHT AT 4 HOUR KEVON AGAIN THIS EVENING. A FEW UNITS WERE OUT OF GATORADE, SO I GOT HER A V8 AND 2 SMALL 1% MILKS DURING THE EVENING. MORNING LABS ARE STILL PENDING AT THIS TIME. PATIENT HAD NO OTHER COMPLAINTS DURING SHIFT OTHER THAN HER LEG PAIN.
[2022-02-02 05:17] LABS: Albumin, Blood 3.7 g/dL (3.4-5.0); Anion Gap 9 mmol/L (6-16); Blood Urea Nitrogen 19 mg/dL (8-24); Bun/Creatinine Ratio 44.7 (12.0-20.0); CO2, Blood 25 mmol/L (21-32); Calcium, Blood 10.2 mg/dL (8.5-10.1); Chloride, Blood 95 mmol/L (98-108); Creatinine, Blood 0.43 mg/dL (0.40-1.00); Glomerular Filtration Rate >60 (60-); Glucose, Blood 134 mg/dL (70-99); Phosphorus, Blood 4.6 mg/dL (2.5-4.9); Potassium, Blood 4.3 mmol/L (3.5-5.5); Sodium, Blood 129 mmol/L (136-145)
--- NOTE | 2022-02-02 14:34 | NUR ---
NURSE NOTE CYLINDER HANDLER NOTIFIED NURSE COVERING FOR THIS RN LUNCH BREAK ABOUT ST ELEVATION CHANGES. STAT ECG ORDERED BY DR. NORTON NOTIFIED OF RESULTS OF ECG. NO ADDITIONAL ORDERS AT THIS TIME. FORWARDED ECG RESULTS TO [facility] TO COMPARE.
--- NOTE | 2022-02-02 16:07 | NUR ---
SHIFT SUMMARY PATIENT IS ALERT AND ORIENTED X4. PATIENT IS PLEASENT AND COOPERATIVE WITH CARE. PATIENT HAD AN EPISODE OF ELEVATED ST SEGMENT PER TELETECH DAMASO. PATIENT WAS NON SYMTOMATIC. ECG SHOWED TACHYCARDIA AND ABNORMAL ECG. CALLED AND NO ADDITIONAL ORDERS WERE ADDED. PATIENT HAS REQUIRED Q4 PAIN MEDICATION PER EMAR. PATIENT HAS NO OTHER COMPLAINTS OF NAUSEA, VOMITTING OR SOB THIS SHIFT. SODIUM AND POTASSIUM HAVE HAD POSITIVE INCREASES. BED IN LOCKED AND LOWEST POSITION, CALL LIGHT ON. WILL MONITOR UNTIL SHIFT CHANGE.
[2022-02-02 18:21] LABS: Albumin, Blood 3.7 g/dL (3.4-5.0); Anion Gap 5 mmol/L (6-16); Blood Urea Nitrogen 23 mg/dL (8-24); Bun/Creatinine Ratio 65.7 (12.0-20.0); CO2, Blood 25 mmol/L (21-32); Calcium, Blood 9.6 mg/dL (8.5-10.1); Chloride, Blood 100 mmol/L (98-108); Creatinine, Blood 0.35 mg/dL (0.40-1.00); Glomerular Filtration Rate >60 (60-); Glucose, Blood 120 mg/dL (70-99); Phosphorus, Blood 4.3 mg/dL (2.5-4.9); Potassium, Blood 3.8 mmol/L (3.5-5.5); Sodium, Blood 130 mmol/L (136-145)
--- NOTE | 2022-02-03 06:05 | NUR ---
PM SHIFT SUMMARY PATIENT ONLY CONSUMED 1 GATORADE (590 ML) WITH ME DURING THE SHIFT. AT THE START OF SHIFT, SHE DID HAVE A FEW EMPTY BOTTLES OF FLAVORS I HAVE NEVER SEEN US PROVIDE TO PATIENTS. HER ONLY REQUEST DURING THE SHIFT WAS FOR HER PAIN MEDICATION - SHE KNOWS EXACTLY WHEN HER 4 HOUR KEVON IS FOR THE NEXT DOSE. SHE STILL STATES THAT THE PAIN AND NUMBNESS IS GREATER IN THE LEFT LEG. HER SODIUM IS NOW UP TO A 130 AND HER POTASSIUM IS CURRENTLY AT 3.8.
[2022-02-03 07:57] LABS: Albumin, Blood 3.3 g/dL (3.4-5.0); Anion Gap 9 mmol/L (6-16); Blood Urea Nitrogen 13 mg/dL (8-24); Bun/Creatinine Ratio 31.4 (12.0-20.0); CO2, Blood 25 mmol/L (21-32); Calcium, Blood 9.2 mg/dL (8.5-10.1); Chloride, Blood 99 mmol/L (98-108); Creatinine, Blood 0.41 mg/dL (0.40-1.00); Glomerular Filtration Rate >60 (60-); Glucose, Blood 137 mg/dL (70-99); Phosphorus, Blood 4.1 mg/dL (2.5-4.9); Potassium, Blood 3.3 mmol/L (3.5-5.5); Sodium, Blood 133 mmol/L (136-145)
[2022-02-03] MEDS ORDERED: NORVASC10 MG PO (15:55)
[2022-02-03] MEDS ORDERED: Demeclocycline300 MG PO (15:57)
[2022-02-03] MEDS ORDERED: Norco 5-325 Ta1 EACH PO (15:59)
[2022-02-03] MEDS ORDERED: Prinivil10 MG PO (16:00)
[2022-02-03] MEDS ORDERED: SODCHL1 PO (16:00)
[2022-02-03] MEDS ORDERED: UREA PO (16:07)
--- NOTE | 2022-02-03 17:24 | NUR ---
DISCHARGE NOTE THE PATIENT WAS DISCHARGED VIA WHEELCHAIR WITH SPOUSE. THE PATIENT WAS GIVEN A HARD COPY OF SCRIPT FOR PAIN MEDICATION. THE PATIENT VERBALIZED UNDERSTANDING OF DISCHARGE INSTRUCTIONS GIVEN. IV WAS DC'D. VSS. NOTHING FURTHER TO REPORT.
== END 2022-02-03 17:07 | disposition home or self-care (01) | DRG 643 ==
LOC: ER 09:12 → MEDS 12:09 → ICUE 12:09 → ER 13:27 → ICUE 13:38 → MEDS 01-26 10:26 → ENPENDDIS 02-03 14:20 → MEDS 02-03 17:07
PROVIDERS: Emergency Medicine; Family Medicine; Hospitalist; Internal Medicine; Internal Medicine Nephrology; Nurse Practitioner Acute Care; Physician Assistant; ADMIT Internal Medicine
DX: E22.2 Syndrome of inappropriate secretion of antidiuretic hormone (principal); G93.41 Metabolic encephalopathy; Z28.21 Immunization not carried out because of patient refusal; F10.10 Alcohol abuse, uncomplicated; R74.01 Elevation of levels of liver transaminase levels; F32.A Depression, unspecified; E86.0 Dehydration; E87.6 Hypokalemia; R31.0 Gross hematuria; K76.0 Fatty (change of) liver, not elsewhere classified; K59.00 Constipation, unspecified; E03.9 Hypothyroidism, unspecified; Z87.891 Personal history of nicotine dependence; Z85.3 Personal history of malignant neoplasm of breast; Z98.891 History of uterine scar from previous surgery; Z88.0 Allergy status to penicillin; Z91.040 Latex allergy status; Z91.030 Bee allergy status; Z79.899 Other long term (current) drug therapy
CPT/HCPCS: 36415; 70450; 71045; 76705; 76770; 80048; 80053; 80069; 81001; 82140; 82533; 82570; 82784; 83735; 83930; 83935; 84132; 84156; 84295; 84300; 84443; 85025; 85027; 86141; 86160; 87086; 93005; 93010; 93925; 93970; 96374; 99285-25; A9270; J0360; J1650; J1885; J1940; J2405; J7030

== ENCOUNTER → 2022-01-24 | Outpatient (CLI) | payer OTHER ==
[~2022-01-24] MED LIST changes: +GABA100 PO; +LEVSOD25 PO; +OLAN5 PO
[2022-01-24 11:13] LABS: U Amphetamine Screen Not Detected; U Barbituate Screen DETECTED; U Benzodiazapine Screen Not Detected; U Buprenorphine Screen Not Detected; U Cannabinoids Screen DETECTED; U Cocaine Screen Not Detected; U Methadone Screen Not Detected; U Methamphetamine Screen Not Detected; U Opiates Screen Not Detected; U Oxycodone Screen Not Detected; U Phencyclidine Screen Not Detected; U Propoxyphene Screen Not Detected
== END ==
LOC: LAB SHORT 10:00
PROVIDERS: Nurse Practitioner Family
DX: N39.0 Urinary tract infection, site not specified (principal); Z79.891 Long term (current) use of opiate analgesic
CPT/HCPCS: 87086

== ENCOUNTER 2022-02-06 15:33 | Inpatient (IN) | payer OTHER ==
[~2022-02-06] VITALS: Ht 162.6 cm; Wt 53.4 kg
[~2022-02-06 15:33] MED LIST changes: +Demeclocycline300 MG PO; +GABA100 PO; +LEVSOD25 PO; +NORVASC10 MG PO; +Norco 5-325 Ta1 EACH PO; +Prinivil10 MG PO; +SODCHL1 PO; +UREA PO
[2022-02-06 16:15] LABS: BASOPHILS PERCENT AUTO 1 % (0-2); EOSINOPHILS ABSOLUTE AUTO 0.02 K/mm3 (0.00-0.68); EOSINOPHILS PERCENT AUTO 0 % (0-6); Hematocrit 30.7 % (33.0-51.0); Hemoglobin 10.4 g/dL (11.5-16.0); IMMATURE GRAN ABSOLUTE AUTO 0.08 K/mm3 (0.00-0.10); IMMATURE GRAN PERCENT AUTO 0 % (0-1); LYMPHOCYTES ABSOLUTE AUTO 1.64 K/mm3 (0.84-5.20); LYMPHOCYTES PERCENT AUTO 9 % (21-46); MONOCYTES ABSOLUTE AUTO 2.31 K/mm3 (0.16-1.47); MONOCYTES PERCENT AUTO 13 % (4-13); Mean Corpuscular HGB 30.7 pg (26.0-34.0); Mean Corpuscular HGB Conc 33.9 g/dL (31.5-36.5); Mean Corpuscular Volume 91 fL (80-100); Mean Platelet Volume 9.3 fL (9.1-12.4); NEUTROPHILS PERCENT AUTO 78 % (41-73); Platelet Count 567 K/mm3 (150-400); RDW Coefficient Variation 15.9 % (11.7-14.2); RDW Standard Deviation 52.2 fL (35.1-46.3); Red Blood Cell Count 3.39 M/mm3 (3.80-5.20); White Blood Cell Count 18.55 K/mm3 (4.00-11.30)
[2022-02-06 16:18] LABS: Source, Urine Clean Catch
[2022-02-06 16:32] LABS: Alanine Aminotransfer (ALT/SGP 81 U/L (12-78); Albumin, Blood 3.7 g/dL (3.4-5.0); Albumin/Globulin Ratio 0.9 (0.8-1.8); Alk Phos 119 U/L (50-136); Anion Gap 9 mmol/L (6-16); Aspartate Aminotrans (AST/SGOT 40 U/L (12-37); Bilirubin, Total 0.9 mg/dL (0.1-1.0); Blood Urea Nitrogen 14 mg/dL (8-24); Bun/Creatinine Ratio 25.5 (12.0-20.0); CO2, Blood 23 mmol/L (21-32); Calcium, Blood 9.9 mg/dL (8.5-10.1); Chloride, Blood 100 mmol/L (98-108); Creatinine, Blood 0.55 mg/dL (0.40-1.00); Glomerular Filtration Rate >60 (60-); Glucose, Blood 106 mg/dL (70-99); Potassium, Blood 3.3 mmol/L (3.5-5.5); Sodium, Blood 132 mmol/L (136-145); Total Protein, Blood 7.7 g/dL (6.4-8.2)
[2022-02-06 16:40] LABS: CPK Creatine Kinase 443 U/L (26-193); Ethanol (Alcohol), Blood, Med <3 mg/dL
[2022-02-06 16:43] LABS: Appearance, Urine Clear (Clear); Bilirubin, Urine Neg (Neg); Blood, Urine Neg (Neg); Color, Urine Yellow (P-Yellow); Glucose Qualitative, Urine Neg (Neg); Ketones, Urine 3+ (Neg); Leukocyte Esterase, Urine Neg (Neg); Nitrite, Urine Neg (Neg); Protein, Urine 2+ (Neg); Urobilinogen, Urine NORM (Normal)
[2022-02-06 16:45] LABS: Sodium, Urine, Random 8 mmol/L (20-110)
[2022-02-06 16:57] LABS: Creatine Kinase MB 1.1 ng/mL (0.0-3.6); Creatine Kinase MB Index 0.2 (0.0-4.0)
[2022-02-06 17:00] LABS: U Amphetamine Screen Not Detected; U Barbituate Screen DETECTED; U Benzodiazapine Screen Not Detected; U Buprenorphine Screen Not Detected; U Cannabinoids Screen Not Detected; U Cocaine Screen Not Detected; U Methadone Screen Not Detected; U Methamphetamine Screen Not Detected; U Opiates Screen DETECTED; U Oxycodone Screen Not Detected; U Phencyclidine Screen Not Detected; U Propoxyphene Screen Not Detected
[2022-02-06 17:21] LABS: Osmolality, Serum 278 mos/KG (275-300)
[2022-02-06 17:21] LABS: Bacteria Few /hpf; Red Blood Cells, Urine 0-2 /hpf (0-2); Squamous Epithelial Cells Rare /hpf (Few)
[2022-02-06 17:25] LABS: Osmolality, Urine 498 mos/kg (15-1400)
[2022-02-07 00:03] LABS: Appearance, CSF Clear (Clear); RBC Count, CSF 10 /mm3 (0-0); WBC Count, CSF 31 /mm3 (0-5)
--- NOTE | 2022-02-07 00:32 | NUR ---
SPOKE WITH DR. ST ABOUT GETTING SOME IVF FOR THIS PT, STATES SHE DOESN'T WANT ANYTHING AT THIS TIME EVEN THOUGH THE NA IS 132. STATES ER GAVE 1L IVF AND THAT SHE JUST WANTS TO MONITOR THE LABS IN THE AM.
[2022-02-07 00:34] LABS: Glucose, CSF 8 mg/dL (40-70)
[2022-02-07 00:53] LABS: Lymphocytes, CSF 41 % (40-80); Monocytes, CSF 58 % (15-45); Neutrophils, CSF 1 % (0-6)
[2022-02-07 01:13] LABS: Bicarbonate Venous 23.4 mmol/L (24.0-30.0); PCO2 Venous 34.2 mmHg (38-42); PO2 Venous 38.5 mmHg (38-42); pH Blood Venous 7.44 (7.34-7.37)
[2022-02-07 01:14] LABS: Cryptococcus Neoformans/Gattii Not Detected (NOT DETECT); Enterovirus Not Detected (NOT DETECT); Escherichia Coli K1 Not Detected (NOT DETECT); Haemophilus Influenza Not Detected (NOT DETECT); Herpes Simplex Virus 1 Not Detected (NOT DETECT); Herpes Simplex Virus 2 Not Detected (NOT DETECT); Human Herpesvirus 6 Not Detected (NOT DETECT); Human Parechovirus Not Detected (NOT DETECT); Listeria Monocytogenes Not Detected (NOT DETECT); Neisseria Meningitidis Not Detected (NOT DETECT); Streptococcus Agalactiae Not Detected (NOT DETECT); Streptococcus Pneumoniae Not Detected (NOT DETECT); Varicella Zoster Virus Not Detected (NOT DETECT)
[2022-02-07 01:32] LABS: Anion Gap 10 mmol/L (6-16); Blood Urea Nitrogen 12 mg/dL (8-24); Bun/Creatinine Ratio 24.6 (12.0-20.0); CO2, Blood 23 mmol/L (21-32); Calcium, Blood 9.4 mg/dL (8.5-10.1); Chloride, Blood 104 mmol/L (98-108); Creatinine, Blood 0.49 mg/dL (0.40-1.00); Glomerular Filtration Rate >60 (60-); Glucose, Blood 99 mg/dL (70-99); Potassium, Blood 3.3 mmol/L (3.5-5.5); Sodium, Blood 137 mmol/L (136-145)
[2022-02-07 04:33] LABS: Hematocrit 27.1 % (33.0-51.0); Hemoglobin 9.2 g/dL (11.5-16.0); Mean Corpuscular HGB 30.8 pg (26.0-34.0); Mean Corpuscular HGB Conc 33.9 g/dL (31.5-36.5); Mean Corpuscular Volume 91 fL (80-100); Mean Platelet Volume 9.4 fL (9.1-12.4); Platelet Count 455 K/mm3 (150-400); RDW Coefficient Variation 15.7 % (11.7-14.2); RDW Standard Deviation 53.3 fL (35.1-46.3); Red Blood Cell Count 2.99 M/mm3 (3.80-5.20); White Blood Cell Count 11.49 K/mm3 (4.00-11.30)
[2022-02-07 04:52] LABS: Anion Gap 10 mmol/L (6-16); Blood Urea Nitrogen 12 mg/dL (8-24); Bun/Creatinine Ratio 25.5 (12.0-20.0); CO2, Blood 21 mmol/L (21-32); CPK Creatine Kinase 347 U/L (26-193); Calcium, Blood 8.9 mg/dL (8.5-10.1); Chloride, Blood 105 mmol/L (98-108); Creatinine, Blood 0.47 mg/dL (0.40-1.00); Glomerular Filtration Rate >60 (60-); Glucose, Blood 123 mg/dL (70-99); Potassium, Blood 3.6 mmol/L (3.5-5.5); Sodium, Blood 136 mmol/L (136-145)
[2022-02-07 05:34] LABS: BAND PERCENT MAN 1 % (0-8); BASOPHILS ABSOLUTE MAN 0.34 K/mm3 (0.00-0.23); BASOPHILS PERCENT MAN 3 % (0-2); EOSINOPHILS PERCENT MAN 0 % (0-6); LYMPHOCYTES ABSOLUTE MAN 0.22 K/mm3 (0.84-5.20); LYMPHOCYTES PERCENT MAN 2 % (21-46); MONOCYTES ABSOLUTE MAN 0.22 K/mm3 (0.16-1.47); MONOCYTES PERCENT MAN 2 % (4-13); NEUTROPHILS ABSOLUTE MAN 10.68 K/mm3 (1.96-9.15); SEG NEUTROPHILS PERCENT MAN 92 % (41-73); TOTAL CELLS COUNTED 100
--- NOTE | 2022-02-07 06:40 | NUR ---
Accepted from ED and admission completed. Spouse and daughter at bedside for admission intake. Very agitated and thrashing in bed, overbreathing vent. sedation titrated up. Hospitalist called for orders. Medicated with prn per eMAR. Rested quietly when not being stimulated. gets restless and thrashes around in bed with turns and oral care. Propafol infusing at 55 mcgs Notable tremors when aroused.
--- NOTE | 2022-02-07 08:01 | NUR ---
TOOK OVER CARE OF PT AT 0700, PT WAS ON VC/AC16/400/45%/5 WITH 55 OF PROPOFOL. PT AGITATED AND FOLLOWING COMMANDS, OPENING EYES WHILE ON SEDATION. DR. DOMINIQUE TO BEDSIDE TO EVALUATE, PT PLACED ON PRESSURE SUPPORT BY . PROPOFOL STOPPED. THEN PT EXTUBATED BY RT WITHOUT INCIDENT.
--- NOTE | 2022-02-07 16:00 | NUR ---
SUMMARY NEURO; A/O X3, SOMETIMES FORGETS DAY. FORGETFUL. TREMORS BUE, BLE WEAKNESS/UNSTEADY. FAMILY HISTORY OF MS CARDIAC; SINUS TACH LUNGS; CLEAR, ON RA GI/; ROA REMOVED TODAY, MULTIPLE VOIDS AND LOOSE BM (PT DRANK PRUNE JUICE)
--- NOTE | 2022-02-07 18:34 | NUR ---
NOTIFIED OF PT'S REQUEST TO SEE A NEUROLOGIST D/T PT NOT BEING ABLE TO WALK AND REQUEST TO BE TRANSFERRED IF NEEDED.
--- NOTE | 2022-02-08 04:53 | NUR ---
SHIFT SUMMARY ICU TRANSFER THIS SHIFT. A/OX3, FORGETFUL AT TIMES. 1 ASSIST TO BSC STAND/PIVOT. GENERALIZED WEAKNESS NOTED. C/O SEVERE BACK PAIN, MEDICATED PER EMAR. BP CONTINUES TO BE ELEVATED. NO ACUTE CHANGES AT THIS TIME. BED IN LOWEST POSITION WITH CALL LIGHT IN REACH. WILL CONTINUE TO MONITOR AND REPORT TO ONCOMING RN.
[2022-02-08 05:56] LABS: BASOPHILS ABSOLUTE AUTO 0.06 K/mm3 (0.00-0.23); BASOPHILS PERCENT AUTO 1 % (0-2); EOSINOPHILS ABSOLUTE AUTO 0.11 K/mm3 (0.00-0.68); EOSINOPHILS PERCENT AUTO 1 % (0-6); Hematocrit 30.7 % (33.0-51.0); Hemoglobin 10.4 g/dL (11.5-16.0); IMMATURE GRAN ABSOLUTE AUTO 0.06 K/mm3 (0.00-0.10); IMMATURE GRAN PERCENT AUTO 1 % (0-1); LYMPHOCYTES ABSOLUTE AUTO 1.09 K/mm3 (0.84-5.20); LYMPHOCYTES PERCENT AUTO 10 % (21-46); MONOCYTES PERCENT AUTO 14 % (4-13); Mean Corpuscular HGB 30.6 pg (26.0-34.0); Mean Corpuscular HGB Conc 33.9 g/dL (31.5-36.5); Mean Corpuscular Volume 90 fL (80-100); Mean Platelet Volume 9.2 fL (9.1-12.4); NEUTROPHILS ABSOLUTE AUTO 8.21 K/mm3 (1.96-9.15); NEUTROPHILS PERCENT AUTO 75 % (41-73); Platelet Count 457 K/mm3 (150-400); RDW Coefficient Variation 15.3 % (11.7-14.2); RDW Standard Deviation 50.9 fL (35.1-46.3); White Blood Cell Count 11.03 K/mm3 (4.00-11.30)
[2022-02-08 06:34] LABS: Alanine Aminotransfer (ALT/SGP 77 U/L (12-78); Albumin, Blood 3.1 g/dL (3.4-5.0); Albumin/Globulin Ratio 0.8 (0.8-1.8); Alk Phos 116 U/L (50-136); Anion Gap 10 mmol/L (6-16); Aspartate Aminotrans (AST/SGOT 41 U/L (12-37); Bilirubin, Total 0.4 mg/dL (0.1-1.0); Blood Urea Nitrogen 6 mg/dL (8-24); Bun/Creatinine Ratio 14.6 (12.0-20.0); CO2, Blood 23 mmol/L (21-32); CPK Creatine Kinase 356 U/L (26-193); Calcium, Blood 9.3 mg/dL (8.5-10.1); Chloride, Blood 102 mmol/L (98-108); Creatinine, Blood 0.41 mg/dL (0.40-1.00); Globulin, Blood 4.1 g/dL (2.2-4.0); Glomerular Filtration Rate >60 (60-); Glucose, Blood 128 mg/dL (70-99); Potassium, Blood 3.2 mmol/L (3.5-5.5); Sodium, Blood 135 mmol/L (136-145); Total Protein, Blood 7.2 g/dL (6.4-8.2)
--- NOTE | 2022-02-08 17:28 | NUR ---
SHIFT SUMMARY PT'S ARRIVED AT THE BEGINNING OF THE SHIFT, REQUESTING TO SPEAK TO THE DOCTOR. HE STAYED WITH PT FOR 1 HOUR. PT ASKED FOR PAIN MEDICATION FREQUENTY. SHE RECIEVED PAIN MEDICATION X 2 DURING SHIFT. PT WOULD CALL FOR SUPERVISION TO USE THE COMMODE CONSISTENLY. PT SPOKE WITH PROVIDER X 2 DURING THE SHIFT. PROVIDER ORDERED AN X-RAY FOR L HIP, PT LEFT FOR X-RAY AT 17:30. PT STATED SHE WAS HAVING ISSUES HAVING A BOWEL MOVEMENT, REQUESTED PRUNE JUICE. PT STAYED IN BED ALL SHIFT, SLEEPING RARELY. PT'S VITAL SIGNS WERE MONITORED AND WILL CONTINUE TO BE MONITORED UNTIL NOC SHIFT HAND OFF.
[2022-02-08 22:43] LABS: Vancomycin, Trough 11.1 ug/mL (5.0-10.0)
--- NOTE | 2022-02-09 01:00 | NUR ---
ASSUMED CARE OF PT, THIS RN AGREES TO SHIFT ASSESSMENT FINDINGS.
--- NOTE | 2022-02-09 04:41 | NUR ---
SUMMARY: PT A/OX4, CALLS APPROPRIATELY TO SPECIFY NEEDS AND IS SBA TO BSC. SHE CONT'S TO HAVE URINARY URGENCY SO IS UP FREQUENTLY T/O NOCTE TO VOID, BLADDER SCAN DONE AND PVR IS NEGLIGIBLE THIS SHIFT. TREMOR OBSERVED AND PT ADMITS IT'S UNCHANGED FROM BASELINE. SHE CONT'S TO REPORT BILAT LEG AND LOWER BACK PAIN W/NORCO RECIEVED FOR TOLERABL RELIEF. PT REMAINS ON TELEMTRY AND IS S.TACH W/HR 100'S BPM. PRN LABETOLOL ADMINISTERED ON DAY SHIFT WAS EFFECTIVE AT SUSTAINING SBP<156. NO ACUTE CHANGES, VSS/AFEBRILE. WCTM/REPORT TO DAY RN.
[2022-02-09 05:42] LABS: BASOPHILS ABSOLUTE AUTO 0.07 K/mm3 (0.00-0.23); BASOPHILS PERCENT AUTO 1 % (0-2); EOSINOPHILS PERCENT AUTO 1 % (0-6); Hematocrit 32.8 % (33.0-51.0); IMMATURE GRAN ABSOLUTE AUTO 0.04 K/mm3 (0.00-0.10); IMMATURE GRAN PERCENT AUTO 0 % (0-1); LYMPHOCYTES ABSOLUTE AUTO 0.97 K/mm3 (0.84-5.20); LYMPHOCYTES PERCENT AUTO 9 % (21-46); MONOCYTES ABSOLUTE AUTO 1.47 K/mm3 (0.16-1.47); MONOCYTES PERCENT AUTO 14 % (4-13); Mean Corpuscular HGB 30.5 pg (26.0-34.0); Mean Corpuscular HGB Conc 33.5 g/dL (31.5-36.5); Mean Corpuscular Volume 91 fL (80-100); Mean Platelet Volume 9.5 fL (9.1-12.4); NEUTROPHILS ABSOLUTE AUTO 8.13 K/mm3 (1.96-9.15); NEUTROPHILS PERCENT AUTO 76 % (41-73); Platelet Count 507 K/mm3 (150-400); RDW Standard Deviation 50.2 fL (35.1-46.3); Red Blood Cell Count 3.61 M/mm3 (3.80-5.20); White Blood Cell Count 10.78 K/mm3 (4.00-11.30)
[2022-02-09 06:14] LABS: Alanine Aminotransfer (ALT/SGP 73 U/L (12-78); Albumin, Blood 3.2 g/dL (3.4-5.0); Albumin/Globulin Ratio 0.7 (0.8-1.8); Alk Phos 127 U/L (50-136); Anion Gap 8 mmol/L (6-16); Aspartate Aminotrans (AST/SGOT 33 U/L (12-37); Bilirubin, Total 0.4 mg/dL (0.1-1.0); Blood Urea Nitrogen 5 mg/dL (8-24); Bun/Creatinine Ratio 13.9 (12.0-20.0); CO2, Blood 25 mmol/L (21-32); Calcium, Blood 9.4 mg/dL (8.5-10.1); Chloride, Blood 100 mmol/L (98-108); Creatinine, Blood 0.36 mg/dL (0.40-1.00); Globulin, Blood 4.5 g/dL (2.2-4.0); Glomerular Filtration Rate >60 (60-); Glucose, Blood 130 mg/dL (70-99); Potassium, Blood 3.4 mmol/L (3.5-5.5); Sodium, Blood 133 mmol/L (136-145); Total Protein, Blood 7.7 g/dL (6.4-8.2)
--- NOTE | 2022-02-09 18:31 | NUR ---
SHIFT SUMMARY PT'S WAS AT THE BEDSIDE AT THE START OF THE SHIFT. PT WAS LAYING IN BED, WATCHING TELEVISION AND EATING BREAKFAST. PT REMAINED IN BED THE REMAINDER OF THE DAY, ASKING FOR ASSISTANCE WHEN USING THE BEDSIDE COMMODE. PT WAS STABLE AND RELAXING AT THE END OF THE SHIFT. WILL CONTINUE TO MONITOR UNTIL NOC SHIFT TRANSFER.
--- NOTE | 2022-02-09 18:42 | NUR ---
DIE REAMER FOUND A VAPE PIN IN THE PATIENT'S BED, HIDDEN WITHIN THE SHEETS. DIE REAMER REMOVED THE VAPE PIN FROM THE ROOM. SN WILL DISCUSS THE PROCEDURES AND PROTOCOLS OF [facility], THAT THIS IS A SMOKE FREE [place] AND NO SMOKING OR VAPES ARE ALLOWED ON THE PROPERTY. THE VAPE PEN WILL BE GIVEN TO HER IN THE AM, THIS WILL BE REPORTED TO THE [facility] SHIFT NURSE.
[2022-02-10 05:19] LABS: BASOPHILS ABSOLUTE AUTO 0.11 K/mm3 (0.00-0.23); BASOPHILS PERCENT AUTO 1 % (0-2); EOSINOPHILS ABSOLUTE AUTO 0.05 K/mm3 (0.00-0.68); EOSINOPHILS PERCENT AUTO 0 % (0-6); Hematocrit 35.6 % (33.0-51.0); Hemoglobin 11.9 g/dL (11.5-16.0); IMMATURE GRAN ABSOLUTE AUTO 0.12 K/mm3 (0.00-0.10); IMMATURE GRAN PERCENT AUTO 1 % (0-1); LYMPHOCYTES ABSOLUTE AUTO 0.85 K/mm3 (0.84-5.20); LYMPHOCYTES PERCENT AUTO 4 % (21-46); MONOCYTES ABSOLUTE AUTO 2.12 K/mm3 (0.16-1.47); MONOCYTES PERCENT AUTO 9 % (4-13); Mean Corpuscular HGB 30.5 pg (26.0-34.0); Mean Corpuscular HGB Conc 33.4 g/dL (31.5-36.5); Mean Corpuscular Volume 91 fL (80-100); Mean Platelet Volume 9.3 fL (9.1-12.4); NEUTROPHILS ABSOLUTE AUTO 19.77 K/mm3 (1.96-9.15); NEUTROPHILS PERCENT AUTO 86 % (41-73); Platelet Count 538 K/mm3 (150-400); RDW Coefficient Variation 15.1 % (11.7-14.2); RDW Standard Deviation 50.5 fL (35.1-46.3); White Blood Cell Count 23.02 K/mm3 (4.00-11.30)
--- NOTE | 2022-02-10 05:34 | NUR ---
SUMMARY: PT A/OX4, CALLS APPROPRIATELY TO SPECIFY NEEDS AND IS PLEASANT AND COOPERATIVE W/CARE. SHE'S SBA TO BSC AND URINE FREQ SEEMS TO BE IMPROVING. IV ABX RECIEVED FOR PNM THEN SL. SHE REMAINS S.TACH AT 100'S-1TEENS W/O S/S CARDIAC DISTRESS. PT MEDICATED W/PRN NORCO FOR TOLERABLE RELIEF OF LEG AND BACK PAIN. PT ACCIDENTALLY PULLED OWN PG THIS AM BUT HAS PATENT L.AC IV. NO ACUTE CHANGES, VSS/AFEBRILE. WCTM AND REPORT TO DAY RN.
[2022-02-10 05:50] LABS: Alanine Aminotransfer (ALT/SGP 64 U/L (12-78); Albumin, Blood 3.2 g/dL (3.4-5.0); Albumin/Globulin Ratio 0.7 (0.8-1.8); Alk Phos 126 U/L (50-136); Anion Gap 10 mmol/L (6-16); Aspartate Aminotrans (AST/SGOT 27 U/L (12-37); Bilirubin, Total 0.5 mg/dL (0.1-1.0); Blood Urea Nitrogen 7 mg/dL (8-24); Bun/Creatinine Ratio 17.4 (12.0-20.0); CO2, Blood 24 mmol/L (21-32); Calcium, Blood 9.6 mg/dL (8.5-10.1); Chloride, Blood 99 mmol/L (98-108); Globulin, Blood 4.7 g/dL (2.2-4.0); Glomerular Filtration Rate >60 (60-); Glucose, Blood 122 mg/dL (70-99); Potassium, Blood 3.5 mmol/L (3.5-5.5); Sodium, Blood 133 mmol/L (136-145); Total Protein, Blood 7.9 g/dL (6.4-8.2); Vancomycin, Trough 13.8 ug/mL (5.0-10.0)
[2022-02-10 14:57] LABS: BASOPHILS ABSOLUTE AUTO 0.08 K/mm3 (0.00-0.23); BASOPHILS PERCENT AUTO 1 % (0-2); EOSINOPHILS ABSOLUTE AUTO 0.15 K/mm3 (0.00-0.68); EOSINOPHILS PERCENT AUTO 1 % (0-6); Hematocrit 33.3 % (33.0-51.0); Hemoglobin 11.1 g/dL (11.5-16.0); IMMATURE GRAN ABSOLUTE AUTO 0.08 K/mm3 (0.00-0.10); IMMATURE GRAN PERCENT AUTO 1 % (0-1); LYMPHOCYTES ABSOLUTE AUTO 1.24 K/mm3 (0.84-5.20); LYMPHOCYTES PERCENT AUTO 7 % (21-46); MONOCYTES ABSOLUTE AUTO 1.71 K/mm3 (0.16-1.47); MONOCYTES PERCENT AUTO 10 % (4-13); Mean Corpuscular HGB 30.4 pg (26.0-34.0); Mean Corpuscular HGB Conc 33.3 g/dL (31.5-36.5); Mean Corpuscular Volume 91 fL (80-100); Mean Platelet Volume 9.2 fL (9.1-12.4); NEUTROPHILS ABSOLUTE AUTO 13.59 K/mm3 (1.96-9.15); NEUTROPHILS PERCENT AUTO 81 % (41-73); Platelet Count 517 K/mm3 (150-400); RDW Coefficient Variation 15.3 % (11.7-14.2); RDW Standard Deviation 51.1 fL (35.1-46.3); Red Blood Cell Count 3.65 M/mm3 (3.80-5.20); White Blood Cell Count 16.85 K/mm3 (4.00-11.30)
--- NOTE | 2022-02-10 18:52 | NUR ---
PT REQUESTED PRUNE JUICE
--- NOTE | 2022-02-10 18:53 | NUR ---
SHIFT SUMMARY- PT ALERT AND ORIENTED TO SELF, FAMILY AND SITUATION. PT WAS CONFUSED LAST NIGHT IN THE NIGHT ANS PULLED OUT IVS. SHE HAS NOT BEEN DISORIENTED ENOUGH TO PERFORM THAT BEHAVIOR TODAY. THE PLAN IS FOR THE PT TO DC HOME TOMORROW PER DR BELL. PT HAS C/O PAIN IN HER BACK AND LEGS AND AN OFF AND ON HEADACHE; MEDICATED PER EMAR. PT CURRENTLY HAS IV ABX RUNNING OTHERWISE THE IV IS SL. THE IV IS OBSCURED FROM VIEW WITH COBAN TO TRY TO PROTECT IT. PT CURRENTLY IN BED SLEEPING, SHE WAKES EASILY TO STAFF VOICES AND THEN DRIFTS BACK TO SLEEP. PT HAS HER CALL LIGHT, BED ALARM ON FOR SAFETY. NO S&S OF DISTRESS NOTED AT THIS TIME WILL CTM AND PASS ON TO NIGHT RN IN BEDSIDE REPORT.
--- NOTE | 2022-02-11 04:36 | NUR ---
SHIFT SUMMARY ADMITTED FOR LLL PNEUMONIA/SEPSIS/AMS. FULL CODE. PLAN IS FOR DC TODAY HOPEFULLY. TELEMETRY: TACHY @ 118 BPM. ANTIB RX ARE SCHEDULED. SHE IS INDEPENDENT TO BSC. SHE IS MENTALLY CLEAR THIS SHIFT AND ABLE TO MAKE HER NEEDS KNOWN, SHE CALLS APPROPRIATELY.
[2022-02-11 04:43] LABS: BASOPHILS ABSOLUTE AUTO 0.13 K/mm3 (0.00-0.23); BASOPHILS PERCENT AUTO 1 % (0-2); EOSINOPHILS ABSOLUTE AUTO 0.16 K/mm3 (0.00-0.68); EOSINOPHILS PERCENT AUTO 1 % (0-6); Hemoglobin 10.3 g/dL (11.5-16.0); IMMATURE GRAN PERCENT AUTO 1 % (0-1); LYMPHOCYTES ABSOLUTE AUTO 0.99 K/mm3 (0.84-5.20); LYMPHOCYTES PERCENT AUTO 6 % (21-46); MONOCYTES ABSOLUTE AUTO 1.87 K/mm3 (0.16-1.47); MONOCYTES PERCENT AUTO 11 % (4-13); Mean Corpuscular HGB 30.4 pg (26.0-34.0); Mean Corpuscular HGB Conc 33.2 g/dL (31.5-36.5); Mean Corpuscular Volume 91 fL (80-100); NEUTROPHILS ABSOLUTE AUTO 14.52 K/mm3 (1.96-9.15); NEUTROPHILS PERCENT AUTO 82 % (41-73); Platelet Count 462 K/mm3 (150-400); RDW Coefficient Variation 14.9 % (11.7-14.2); Red Blood Cell Count 3.39 M/mm3 (3.80-5.20); White Blood Cell Count 17.77 K/mm3 (4.00-11.30)
[2022-02-11 05:45] LABS: Anion Gap 10 mmol/L (6-16); Blood Urea Nitrogen 10 mg/dL (8-24); CO2, Blood 22 mmol/L (21-32); Calcium, Blood 8.8 mg/dL (8.5-10.1); Chloride, Blood 104 mmol/L (98-108); Glomerular Filtration Rate >60 (60-); Glucose, Blood 110 mg/dL (70-99); Potassium, Blood 2.8 mmol/L (3.5-5.5); Sodium, Blood 136 mmol/L (136-145); Vancomycin, Trough 16.1 ug/mL (5.0-10.0)
[2022-02-11] MEDS ORDERED: CIPR750 PO (13:15)
[2022-02-11] MEDS ORDERED: VISBIOME 112.51 EACH PO (13:16)
--- NOTE | 2022-02-11 18:27 | NUR ---
DISCHARGE NOTE- PT WAS GIVEN VERBAL AND WRITTEN DISCHARGE INSTRUCTIONS, SPOUSE PRESENT FOR DISCHARGE TEACHING. MEDS FAXED TO [facility] PER THEIR REQUEST [facility] DELIVERED THE PT WALKER AND TALKED WITH THE FAMILY ABOUT DELIVERING THE REMAINDER OF THE EQUIPMENT TOMORROW. PT SPOUSE ASKED ABOUT STARTING THE ABX TOMORROW, CALLED DR BELL AND HE STATED TOMORROW MORNING WOULD BE FINE. PT AND SPOUSE ARE AWARE. PT IV AND TELE DC'D AT THE TIME OF DISCHARGE. PT ESCORTED OUT TO PT ENTRANCE VIA WC BY THE USED CAR RENOVATOR. NO S&S OF DISTRESS NOTED AT THE TIME OF DISCHARGE.
== END 2022-02-11 16:46 | disposition home health service (06) | DRG 871 ==
LOC: ER 15:33 → ICUW 23:53 → MEDS 02-08 00:40
PROVIDERS: Emergency Medicine; Family Medicine; Student in an Organized Health Care Education/Training Program; ADMIT Family Medicine
PROC: 5A1935Z Respiratory Ventilation, Less than 24 Consecutive Hours (ICD-10-PCS; principal; 2022-02-06)
PROC: 0BH18EZ Insertion of Endotracheal Airway into Trachea, Via Natural or Artificial Opening Endoscopic (ICD-10-PCS; 2022-02-06)
PROC: 009U3ZX Drainage of Spinal Canal, Percutaneous Approach, Diagnostic (ICD-10-PCS; 2022-02-06)
PROC: B01BYZZ Fluoroscopy of Spinal Cord using Other Contrast (ICD-10-PCS; 2022-02-06)
PROC: 3E03329 Introduction of Other Anti-infective into Peripheral Vein, Percutaneous Approach (ICD-10-PCS; 2022-02-06)
DX: A41.9 Sepsis, unspecified organism (principal); J18.9 Pneumonia, unspecified organism; G93.41 Metabolic encephalopathy; E87.3 Alkalosis; M62.82 Rhabdomyolysis; E22.2 Syndrome of inappropriate secretion of antidiuretic hormone; Z20.822 Contact with and (suspected) exposure to COVID-19; D69.6 Thrombocytopenia, unspecified; R65.20 Severe sepsis without septic shock; I10 Essential (primary) hypertension; E87.6 Hypokalemia; E03.9 Hypothyroidism, unspecified; Z88.0 Allergy status to penicillin; Z88.1 Allergy status to other antibiotic agents; Z91.040 Latex allergy status; Z91.030 Bee allergy status; F32.A Depression, unspecified; Z79.899 Other long term (current) drug therapy; F17.290 Nicotine dependence, other tobacco product, uncomplicated; D64.9 Anemia, unspecified
CPT/HCPCS: 31500; 36415; 51701; 51702; 62270; 70450; 71045; 73502; 80048; 80053; 80202; 81001; 82550; 82553; 82803; 82945; 83605; 83930; 83935; 84157; 84300; 84443; 85025; 87040; 87070; 87205; 87483; 88108; 89051; 93005; 93010; 94002; 94003; 96365; 96366; 96368; 96375; 96376; 97162; 97166; 97530; 97535; 99285-25; A9270; C1751; C9113; G0480; J0133; J0330; J0692; J0696; J1100; J1200; J1630; J2060; J2250; J2704; J3010; J3370; J3480; J7030; J7040; J7050

== ENCOUNTER 2022-02-14 16:43 | Emergency (ER) | payer OTHER ==
[~2022-02-14] VITALS: Ht 162.6 cm; Wt 59.0 kg
[~2022-02-14 16:43] MED LIST changes: +CIPR750 PO; +VISBIOME 112.51 EACH PO
[2022-02-14 17:46] LABS: BASOPHILS ABSOLUTE AUTO 0.11 K/mm3 (0.00-0.23); BASOPHILS PERCENT AUTO 1 % (0-2); EOSINOPHILS ABSOLUTE AUTO 0.02 K/mm3 (0.00-0.68); EOSINOPHILS PERCENT AUTO 0 % (0-6); Hematocrit 36.6 % (33.0-51.0); Hemoglobin 12.5 g/dL (11.5-16.0); IMMATURE GRAN ABSOLUTE AUTO 0.27 K/mm3 (0.00-0.10); IMMATURE GRAN PERCENT AUTO 1 % (0-1); LYMPHOCYTES ABSOLUTE AUTO 0.95 K/mm3 (0.84-5.20); LYMPHOCYTES PERCENT AUTO 4 % (21-46); MONOCYTES ABSOLUTE AUTO 1.43 K/mm3 (0.16-1.47); MONOCYTES PERCENT AUTO 6 % (4-13); Mean Corpuscular HGB 29.9 pg (26.0-34.0); Mean Corpuscular HGB Conc 34.2 g/dL (31.5-36.5); Mean Corpuscular Volume 88 fL (80-100); Mean Platelet Volume 8.9 fL (9.1-12.4); NEUTROPHILS ABSOLUTE AUTO 19.84 K/mm3 (1.96-9.15); NEUTROPHILS PERCENT AUTO 88 % (41-73); Platelet Count 671 K/mm3 (150-400); RDW Coefficient Variation 14.7 % (11.7-14.2); RDW Standard Deviation 47.7 fL (35.1-46.3); Red Blood Cell Count 4.18 M/mm3 (3.80-5.20); White Blood Cell Count 22.62 K/mm3 (4.00-11.30)
[2022-02-14 18:06] LABS: Ethanol (Alcohol), Blood, Med <3 mg/dL
[2022-02-14 18:37] LABS: Alanine Aminotransfer (ALT/SGP 60 U/L (12-78); Albumin, Blood 3.1 g/dL (3.4-5.0); Albumin/Globulin Ratio 0.7 (0.8-1.8); Alk Phos 150 U/L (50-136); Anion Gap 10 mmol/L (6-16); Aspartate Aminotrans (AST/SGOT 37 U/L (12-37); Bilirubin, Total 0.5 mg/dL (0.1-1.0); Blood Urea Nitrogen 14 mg/dL (8-24); Bun/Creatinine Ratio 42.2 (12.0-20.0); CO2, Blood 25 mmol/L (21-32); Calcium, Blood 9.4 mg/dL (8.5-10.1); Chloride, Blood 95 mmol/L (98-108); Creatinine, Blood 0.33 mg/dL (0.40-1.00); Globulin, Blood 4.4 g/dL (2.2-4.0); Glomerular Filtration Rate >60 (60-); Glucose, Blood 113 mg/dL (70-99); Sodium, Blood 130 mmol/L (136-145); Total Protein, Blood 7.5 g/dL (6.4-8.2)
[2022-02-14 19:02] LABS: Source, Urine Clean Catch
[2022-02-14 19:05] LABS: Influenza A, PCR NEGATIVE (NEGATIVE); Influenza B, PCR NEGATIVE (NEGATIVE); Resp Syncytial Virus, PCR NEGATIVE (NEGATIVE); SARS-Cov-2 (COVID-19) PCR, MMC NEGATIVE (NEGATIVE)
[2022-02-14 19:09] LABS: Appearance, Urine Clear (Clear); Bilirubin, Urine Neg (Neg); Blood, Urine 1+ (Neg); Color, Urine Yellow (P-Yellow); Glucose Qualitative, Urine Neg (Neg); Ketones, Urine 4+ (Neg); Leukocyte Esterase, Urine Neg (Neg); Nitrite, Urine Neg (Neg); Protein, Urine 2+ (Neg); Specific Gravity, Urine 1.025 (1.003-1.022); Urobilinogen, Urine NORM (Normal)
[2022-02-14 19:30] LABS: Bacteria Few /hpf; Squamous Epithelial Cells Few /hpf (Few); White Blood Cells, Urine 0-2 /hpf (0-5)
[2022-02-14 19:39] LABS: U Amphetamine Screen Not Detected; U Barbituate Screen DETECTED; U Benzodiazapine Screen Not Detected; U Buprenorphine Screen Not Detected; U Cannabinoids Screen Not Detected; U Cocaine Screen Not Detected; U Methadone Screen Not Detected; U Methamphetamine Screen Not Detected; U Opiates Screen Not Detected; U Oxycodone Screen Not Detected; U Phencyclidine Screen Not Detected; U Propoxyphene Screen Not Detected
== END 2022-02-15 00:19 | disposition short-term general hospital (02) ==
LOC: ER 16:43
PROVIDERS: Emergency Medicine
DX: J18.9 Pneumonia, unspecified organism (principal); R29.898 Other symptoms and signs involving the musculoskeletal system; G93.40 Encephalopathy, unspecified; M54.6 Pain in thoracic spine; M54.50 Low back pain, unspecified; Z20.822 Contact with and (suspected) exposure to COVID-19; I10 Essential (primary) hypertension; E03.9 Hypothyroidism, unspecified; F17.290 Nicotine dependence, other tobacco product, uncomplicated; Z85.3 Personal history of malignant neoplasm of breast; Z91.030 Bee allergy status; Z88.0 Allergy status to penicillin; Z91.040 Latex allergy status; Z79.899 Other long term (current) drug therapy
CPT/HCPCS: 0241U; 36415; 71045; 80053; 81001; 83605; 83735; 85025; 96365; 96366; 96367; 96375; 99285-25; A9270; G0480; J0692; J2060; J3010; J3480; J7030; P9612